=== PATIENT | female | born 2000 | race Hispanic/Latino ===

== ENCOUNTER 2023-01-24 12:37 | Emergency (ER) | payer OTHER, SELFPAY ==
--- OUTSIDE RECORDS SUMMARY | 2023-01-24 12:44 | XMS REPORT | Continuity of Care Document ---
:2000 Author Organization [facility] t Address [address] [place] [address] Care Team Providers Name Role Phone CAROLE WREN Primary Care Physician Unavailable CAROLE WREN Attending Clinician Unavailable Carole Walker Attending Clinician SKY FAROOQ Attending Clinician Unavailable SKY FAROOQ Attending Clinician Unavailable SRIRAM LANDIS Attending Clinician Unavailable BRANDEN ODOM Attending Clinician Unavailable Doctor Unassigned, [place] Attending Clinician Unavailable Lab, Ang - Db Attending Clinician Unavailable Jimmy Pompa DO Attending Clinician Juanita Hernandez Attending Clinician JUANITA WATT Attending Clinician Unavailable BETSEY ROJAS Attending Clinician Unavailable Crystal Betsey PERRY Attending Clinician [phone] Lab, Adc Fam Pob I Attending Clinician Unavailable Renetta Starkey Attending Clinician Ultrasound, Ang-Mfm Attending Clinician Unavailable Jeromy Cordon MD Attending Clinician Katt Livingston Attending Clinician Lab, Ang-Rmchp Attending Clinician Unavailable aJcques Tolliver MD Attending Clinician CAROLE WREN Admitting Clinician Unavailable Payers Payer Name Policy Type Policy Number Effective Date Expiration Date S ource [facility] [id number] 2019 00:00:00 [employer] [id number] 2022 OUT OF NETWORK 00:00:00 Problems Condition Condition Condition Status Onset Resolution Last Treating Co mments Source Name Details Category Date Date Treatment Clinician Date On oral On oral Disease Active Univers contracept contracept 2-02 it y of nivia pills niiva pills 00:00: Sayra tyler for for 00 Medical non-contra non-contra Br anch ception ception indication indication Menorrhagi Menorrhagi Disease Active U usman a with a with 2-02 ity of regular regular 00:00: [place] cycle cycle 00 Medical Branch ERICA (iron ERICA (iron Disease Active Uni vers deficiency deficiency 1-24 it y of anemia) anemia) 00:00: [place] 00 Medical Branch Chronic Chronic Disease Active Univers anemia anemia 1-22 ity of 00:00: [place] [facility] Hematochez Hematochez Disease Active 2021-05 U usman ia ia 1-18 ity of 00:00: [place] 00 Medical Branch Internal Internal Disease Active 2021-05 Unive rs hemorrhoid hemorrhoid 1-18 it y of , bleeding , bleeding 00:00: [place] 00 [place] Decreased Decreased Disease Active 2019-05 Uni vers platelet platelet 2-28 ity of count count 00:00: [place] 00 Medical Branch Labor and Labor and Disease Active 2019-05 Uni vers delivery delivery 2-27 ity of indication indication 00:00[place] for care for care 00 Medica l or or Branch interventi interventi on on History of History of Disease Active 2019-05 U nivbriana 2019 novel 2019 novel 2-27 it y of coronaviru coronaviru 00:[place] disease 00 [facility] (COVID-19) (COVID-19) Br anch Disease Active 2019-05 Univers (spontaneo (spontaneo 2-27 it y of us vaginal us vaginal 00:00[place] delivery[place] delivery[place] 00 [facility] Branch Single Single Disease Active 2019-05 Univers live live 2-27 it y of 00:00: [place] 00 [facility] Second Second Disease Active 2019-05 Univers degree degree 2-27 ity of perineal perineal 00:00: [place] laceration laceration 00 Me dical during during Branch delivery delivery Susceptibl Susceptibl Disease Active Overview : Univers e to e to 6-10 Formattin ity of varicella varicella 00:00: [place] of [place] (non-immun (non-immun 00 note Me dical e), e), might be Branch currently currently different from the original. Address pp Supervisio Supervisio Disease Active U nivers n of n of 10-19 ity of high-risk high-risk 00:00: [place] 00 [facility] Allergies, Adverse Reactions, Alerts Allergy Allergy Status Severity Reaction(s) Onset Inactive Treating Comm ents Source Name Type Date Date Clinician NO KNOWN Drug Active Univers ALLERGIE Class ity of S [facility] Social History Social Habit Start Date Stop Date Quantity Comments Source ASSERTION 2019-08-22 University 00:00:00 [facility] History [facility] o f Alcohol Std [place] Medical Drinks Branch History [facility] o f Alcohol Binge [place] [facility] al [facility] Alcohol intake 2022-11-01 2022-11-01 Lifetime University of 00:00:00 00:00:00 non-drinker [facility] (finding) Branch Exposure to 2022-06-04 2022-06-14 Not sure [facility] SARS-CoV-2 00:00:00 11:10:00 [facility] (event) Branch Tobacco Comment 2022-03-28 2022-03-28 no smoke exposure Un iversity of 00:00:00 00:00:00 [facility] Tobacco use and 2022-03-28 2022-03-28 Smokeless tobacco Un iversity of exposure 00:00:00 00:00:00 non-user [facility] History SDOH 2019-10-20 2019-10-20 1 University o f Alcohol Frequency 00:00:00 00:00:00 [facility] [place] Sex Assigned At [birth year] Universit y of 00:00:00 00:00:00 [facility] Smoking Status Start Date Stop Date Source Never smoked tobacco [facility] Medications Ordered Filled Start Stop Current Ordering Indication Dosage Frequency Signature Comments Components Source Medication Medication Date Date Medication? Clinician (SIG) Name Name meloxicam Yes [id number] 7.5mg Take 1 U nivers 7.5 mg 6-22 tablet by ity of tablet 00:00: mouth once [place] 00 daily as Medical needed Branch (coccyx pain). meloxicam Yes [id number] 7.5mg Take 1 U nivers 7.5 mg 6-22 tablet by ity of tablet 00:00: mouth once [place] 00 daily as Medical needed Branch (coccyx pain). norgestimat Yes [id number] 1{tbl} Take 1 Univers e-ethinyl 2-02 tablet by ity o f estradioL 00:00[place] ([place]TH[place] 00 the Medical TRI-CYCLEN, morning. Bran ch 28,) 0.18/0.215/ 0.25 mg-35 mcg (28) tablet norgestimat Yes [id number] 1{tbl} Take 1 Univers e-ethinyl 2-02 tablet by ity o f estradioL 00:[place] the Medical TRI-CYCLEN, morning. Bran ch 28,) 0.18/0.215/ 0.25 mg-35 mcg (28) tablet norgestimat 2022- No [id number] 1{tbl} Take 1 Univers e-ethinyl 2-02 06-22 tablet by ity of estradioL 00:00: 00:00 mouth in [place] (ORTHO 00 :00 the Medical TRI-CYCLEN, morning. Bran ch 28,) 0.18/0.215/ 0.25 mg-35 mcg (28) tablet norgestimat 202- No [id number] 1{tbl} Take 1 Univers e-ethinyl 2-02 06-22 tablet by ity of estradioL 00:00: 00:00 mouth in [place] (ORTHO 00 :00 the Medical TRI-CYCLEN, morning. Bran ch 28,) 0.18/0.215/ 0.25 mg-35 mcg (28) tablet ferrous Yes [id number] 325mg Take 1 Uni vers sulfate 325 1-24 tablet by ity of mg (65 mg 00:00: [place] iron[place] 00 the Medical tablet morning Branch and 1 tablet in the evening. ferrous Yes [id number] 325mg Take 1 Uni vers sulfate 325 1-24 tablet by ity of mg (65 mg 00:00: [place] iron[place] 00 the Medical tablet morning Branch and 1 tablet in the evening. ferrous 2022-0 Yes [id number] 325mg Take 1 Uni vers sulfate 325 1-24 tablet by ity of mg (65 mg 00:00: [place] iron[place] 00 the Medical tablet morning Branch and 1 tablet in the evening. ferrous 2022-0 Yes [id number] 325mg Take 1 Uni vers sulfate 325 1-24 tablet by ity of mg (65 mg 00:00: [place] iron[place] 00 the Medical tablet morning Branch and 1 tablet in the evening. ferrous 0 Yes [id number] 325mg Take 1 Uni vers sulfate 325 1-24 tablet by ity of mg (65 mg 00:00: [place] iron[place] 00 the Medical tablet morning Branch and 1 tablet in the evening. ferrous 2022- No [id number] 325mg Take 1 Un shiraz sulfate 325 1-24 06-22 tablet by it y of mg (65 mg 00:00: 00:00 mouth in [place] iron) 00 :00 the Medical tablet morning Branch and 1 tablet in the evening. ferrous 0 2022- No [id number] 325mg Take 1 Un shiraz sulfate 325 1-24 06-22 tablet by it y of mg (65 mg 00:00: 00:00 mouth in [place] iron) 00 :00 the Medical tablet morning Branch and 1 tablet in the evening. No known No No known [facility] medications 05-31 medication it y of 07:45: s [place] 09 Medical Branch docusate 2022- No Take by Unive rs sodium 05-31 mouth. ity of (COLACE 07:35: 00:00 [place] ORAL) 42 :00 Medical Branch docusate 2022- No Take by Unive rs sodium 05-31 mouth. ity of (COLACE 07:35: 00:00 [place] ORAL) 42 :00 Medical Branch Omeprazole 0 Yes [id number] 20mg Take 1 Univers 20 mg -19 tablet by ity of tablet 00:00: mouth in [place] 00 the Medical morning. Branch Omeprazole 2022-0 Yes [id number] 20mg Take 1 Univers 20 mg 1-19 tablet by ity of tablet 00:00: mouth in [place] 00 the Medical morning. Branch Omeprazole 3-0 Yes [id number] 20mg Take 1 Univers 20 mg 1-19 tablet by ity of tablet 00:00: mouth in [place] 00 the Medical morning. Branch Omeprazole 3-0 Yes [id number] 20mg Take 1 Univers 20 mg 1-19 tablet by ity of tablet 00:00: mouth in [place] 00 the Medical morning. Branch Omeprazole 3-0 Yes [id number] 20mg Take 1 Univers 20 mg 1-19 tablet by ity of tablet 00:00: mouth in [place] 00 the Medical morning. Branch Omeprazole 3-0 Yes [id number] 20mg Take 1 Univers 20 mg 1-19 tablet by ity of tablet 00:00: mouth in [place] 00 the Medical morning. Branch Omeprazole 3-0 Yes [id number] 20mg Take 1 Univers 20 mg 1-19 tablet by ity of tablet 00:00: mouth in [place] 00 the Medical morning. Branch omeprazole 3-0 Yes TAKE 1 Unive rs 20 mg 1-19 CAPSULE BY ity of capsule 00:00: MOUTH IN [place] 00 THE Medical MORNING Branch Omeprazole 3-0 Yes [id number] 20mg Take 1 Univers 20 mg 1-19 tablet by ity of tablet 00:00: mouth in [place] 00 the Medical morning. Branch omeprazole 3-0 Yes TAKE 1 Unive rs 20 mg 1-19 CAPSULE BY ity of capsule 00:00: MOUTH IN [place] 00 THE Medical MORNING Branch Omeprazole 3-0 3- No [id number] 20mg Take 1 Univers 20 mg 1-19 06-22 tablet by ity of tablet 00:00: 00:00 mouth in [place] 00 :00 the Medical morning. Branch omeprazole 3-0 3- No TAKE 1 Univ ers 20 mg 1-19 06-22 CAPSULE BY ity of capsule 00:00: 00:00 MOUTH IN [place] 00 :00 THE Medical MORNING Branch Omeprazole 2023-0 3- No [id number] 20mg Take 1 Univers 20 mg 1-19 06-22 tablet by ity of tablet 00:00: 00:00 mouth in [place] 00 :00 the Medical morning. Branch omeprazole 3-0 2022- No TAKE 1 Univ ers 20 mg 1-19 06-22 CAPSULE BY ity of capsule 00:00: 00:00 MOUTH IN [place] 00 :00 THE Medical MORNING Branch acyclovir 2021-05 Yes TAKE 1 Univer s 200 mg 2-09 CAPSULE BY ity of capsule 00:00: [place]TH [place] 00 TIMES Medical DAILY FOR Branch COLD SORES acyclovir 2021-05 Yes TAKE 1 Univer s 200 mg 2-09 CAPSULE BY ity of capsule 00:00: [place] 00 TIMES Medical DAILY FOR Branch COLD SORES acyclovir 2021-05- No TAKE 1 Unive rs 200 mg 06-21 CAPSULE BY ity of capsule 00:00: 00:00 MOUTH FIVE [place] 00 :00 TIMES Medical DAILY FOR Branch COLD SORES acyclovir 2021-05- No TAKE 1 Unive rs 200 mg 06-21 CAPSULE BY ity of capsule 00:00: 00:00 MOUTH FIVE [place] 00 :00 TIMES Medical DAILY FOR Branch COLD SORES docusate 2021-05 Yes Take by Univer s sodium 1-16 mouth. ity of (COLACE 11:05: [place] ORAL) 31 Medical Branch docusate 2021-05 Yes Take by Univer s sodium 1-16 mouth. ity of (COLACE 11:05: [place] ORAL) 31 Medical Branch docusate 2021-05 Yes Take by Univer s sodium 1-16 mouth. ity of (COLACE 11:05: [place] ORAL) 31 Medical Branch docusate 2021-05 Yes Take by Univer s sodium 1-16 mouth. ity of (COLACE 11:05: [place] ORAL) 31 Medical Branch docusate Yes Take by Univer s sodium 2-23 mouth. ity of (COLACE 20:10: [place] ORAL) 45 Medical Branch docusate 0 Yes Take by Univer s sodium 2-23 mouth. ity of (COLACE 20:10: [place] ORAL) 45 Medical Branch docusate 0 Yes Take by Univer s sodium 2-23 mouth. ity of (COLACE 20:10: [place] ORAL) 45 Medical Branch docusate 2019-05 Yes [id number] 240mg Take 1 U nivers calcium 240 2-29 capsule by it y of mg capsule 00:00: mouth once [place] 00 daily as Medical needed for Branch Constipati on. ibuprofen 2019-05 Yes [id number] 600mg Take 1 Univers 600 mg 2-29 tablet by ity of tablet 00:00: mouth [place] 00 every 6 Medical (six) Branch hours as needed (Pain). Take with food or milk. Iron Fum & 2019-05 Yes [id number] 1{capsu Take 1 Univers P-FA-Vit B 2-29 le} capsule by ity of & C No.9 00:00: mouth [place] (INTEGRA 00 daily. Medical PLUS) 125 Branch mg iron- 1 mg Cap docusate 2019-05- No [id number] 240mg Take 1 Univers calcium 240 2-29 02-23 capsule by i ty of mg capsule 00:00: 00:00 mouth once [place] 00 :00 daily as Medical needed for Branch Constipati on. ibuprofen 2019-05- No [id number] 600mg Take 1 Univers 600 mg 2-29 02-23 tablet by ity of tablet 00:00: 00:00 mouth [place] 00 :00 every 6 Medical (six) Branch hours as needed (Pain). Take with food or milk. Iron Fum & 2019-05- No [id number] 1{capsu Take 1 Univers P-FA-Vit B 2-29 02-23 le} capsule by it y of & C No.9 00:00: 00:00 mouth [place] (INTEGRA 00 :00 daily. Medical PLUS) 125 Branch mg iron- 1 mg Cap docusate 2019-05- No [id number] 240mg Take 1 Univers calcium 240 2- 02-23 capsule by i ty of mg capsule 00:00: 00:00 mouth once [place] 00 :00 daily as Medical needed for Branch Constipati on. ibuprofen 2019-05- No [id number] 600mg Take 1 Univers 600 mg 2-29 02-23 tablet by ity of tablet 00:00: 00:00 mouth [place] 00 :00 every 6 Medical (six) Branch hours as needed (Pain). Take with food or milk. Iron Fum & 2019-05- No [id number] 1{capsu Take 1 Univers P-FA-Vit B 2-29 02-23 le} capsule by it y of & C No.9 00:00: 00:00 mouth [place] (INTEGRA 00 :00 daily. Medical PLUS) 125 Branch mg iron- 1 mg Cap No known No Univers medications ity of [place] [facility] No known No Univers medications ity of [place] [facility] No known No Univers medications ity of [place] [facility] No known No Univers medications ity of [place] [facility] No known No Univers medications ity of [place] [facility] No known No Univers medications ity of [place] [facility] No known No Univers medications ity of [place] [facility] No known No Univers medications ity of [place] [facility] No known No Univers medications ity of [place] [facility] No known No Univers medications ity of [place] [facility] No known No Univers medications ity of [place] [facility] No known No Univers medications ity of [place] [facility] No known No Univers medications ity of [place] [facility] No known No Univers medications ity of [place] [facility] No known No Univers medications ity of [place] [facility] No known No Univers medications ity of [place] [facility] No known No Univers medications ity of [place] [facility] No known No Univers medications ity of [place] [facility] No known No Univers medications ity of [place] [facility] Immunizations Ordered Filled Immunization Date Status Comments [facility] Immunization Name Name Varicella 2020-05-10 Completed University of (varivax)(chicken 00:00:00 [place] M edical pox) Branch Varicella 2020-05-10 Completed University of (varivax)(chicken 00:00:00 [place] M edical pox) Branch Varicella 2020-05-10 Completed University of (varivax)(chicken 00:00:00 [place] M edical pox) Branch Varicella 2020-05-10 Completed University of (varivax)(chicken 00:00:00 [place] M edical pox) Branch Varicella 2020-05-10 Completed University of (varivax)(chicken 00:00:00 [place] M edical pox) Branch Varicella 2020-05-10 Completed University of (varivax)(chicken 00:00:00 [place] M edical pox) Branch Varicella 2020-05-10 Completed University of (varivax)(chicken 00:00:00 [place] M edical pox) Branch Varicella 2020-05-10 Completed University of (varivax)(chicken 00:00:00 [place] M edical pox) Branch Varicella 2020-05-10 Completed University of (varivax)(chicken 00:00:00 [place] M edical pox) Branch Varicella 2020-05-10 Completed University of (varivax)(chicken 00:00:00 [place] M edical pox) Branch Varicella 2020-05-10 Completed University of (varivax)(chicken 00:00:00 [place] M edical pox) Branch Varicella 2020-05-10 Completed University of (varivax)(chicken 00:00:00 [place] M edical pox) Branch Varicella 2020-05-10 Completed University of (varivax)(chicken 00:00:00 [place] M edical pox) Branch Varicella 2020-05-10 Completed University of (varivax)(chicken 00:00:00 [place] M edical pox) Branch Varicella 2020-05-10 Completed University of (varivax)(chicken 00:00:00 [place] M edical pox) Branch Varicella 2020-05-10 Completed University of (varivax)(chicken 00:00:00 [place] M edical pox) Branch Varicella 2020-05-10 Completed University of (varivax)(chicken 00:00:00 [place] M edical pox) Branch Varicella 2020-05-10 Completed University of (varivax)(chicken 00:00:00 [place] M edical pox) Branch Varicella 2020-05-10 Completed University of (varivax)(chicken 00:00:00 [place] M edical pox) Branch TDAP 2020-02-24 Completed University of 00:00:00 [facility] TDAP 2020-02-24 Completed University of 00:00:00 [facility] TDAP 2020-02-24 Completed University of 00:00:00 [facility] TDAP 2020-02-24 Completed University of 00:00:00 [facility] TDAP 2020-02-24 Completed University of 00:00:00 [facility] TDAP 2020-02-24 Completed University of 00:00:00 [facility] TDAP 2020-02-24 Completed University of 00:00:00 [facility] TDAP 2020-02-24 Completed University of 00:00:00 [facility] TDAP 2020-02-24 Completed University of 00:00:00 [facility] TDAP 2020-02-24 Completed University of 00:00:00 [facility] TDAP 2020-02-24 Completed University of 00:00:00 [facility] TDAP 2020-02-24 Completed University of 00:00:00 [facility] TDAP 2020-02-24 Completed University of 00:00:00 [facility] TDAP 2020-02-24 Completed University of 00:00:00 [place] [facility] TDAP 2020-02-24 Completed University of 00:00:00 [place] [facility] TDAP 2020-02-24 Completed University of 00:00:00 [place] [facility] TDAP 2020-02-24 Completed University of 00:00:00 [place] [facility] TDAP 2020-02-24 Completed University of 00:00:00 [place] [facility] TDAP 2020-02-24 Completed University of 00:00:00 [place] [facility] TDAP 2020-02-24 Completed University of 00:00:00 [place] [facility] TDAP 2020-02-24 Completed University of 00:00:00 [place] [facility] TDAP 2020-02-24 Completed University of 00:00:00 [place] [facility] TDAP 2020-02-24 Completed University of 00:00:00 [place] [facility] TDAP 2020-02-24 Completed University of 00:00:00 [place] [facility] TDAP 2020-02-24 Completed University of 00:00:00 [place] [facility] TDAP 2020-02-24 Completed University of 00:00:00 [place] [facility] TDAP 2020-02-24 Completed University of 00:00:00 [place] [facility] TDAP 2020-02-24 Completed University of 00:00:00 [place] [facility] HPV 2012-09-09 Completed University of 00:00:00 [place] [facility] HPV 2012-09-09 Completed University of 00:00:00 [place] [facility] HPV 2012-09-09 Completed University of 00:00:00 [place] [facility] HPV 2012-09-09 Completed University of 00:00:00 [place] [facility] HPV 2012-09-09 Completed University of 00:00:00 [place] [facility] HPV 2012-09-09 Completed University of 00:00:00 [place] [facility] HPV 2012-09-09 Completed University of 00:00:00 [place] [facility] HPV 2012-09-09 Completed University of 00:00:00 [place] [facility] HPV 2012-09-09 Completed University of 00:00:00 [place] [facility] HPV 2012-09-09 Completed University of 00:00:00 [place] [facility] HPV 2012-09-09 Completed University of 00:00:00 [place] [facility] HPV 2012-09-09 Completed University of 00:00:00 [place] [facility] HPV 2012-09-09 Completed University of 00:00:00 [place] [facility] HPV 2012-09-09 Completed University of 00:00:00 [place] [facility] HPV 2012-09-09 Completed University of 00:00:00 [place] [facility] HPV 2012-09-09 Completed University of 00:00:00 [place] [facility] HPV 2012-09-09 Completed University of 00:00:00 [place] [facility] HPV 2012-09-09 Completed University of 00:00:00 [place] [facility] HPV 2012-09-09 Completed University of 00:00:00 [place] [facility] HPV 2012-09-09 Completed University of 00:00:00 [place] [facility] HPV 2012-09-09 Completed University of 00:00:00 [place] [facility] HPV 2012-09-09 Completed University of 00:00:00 [place] [facility] HPV 2012-09-09 Completed University of 00:00:00 [place] [facility] HPV 2012-09-09 Completed University of 00:00:00 [place] [facility] HPV 2012-09-09 Completed University of 00:00:00 [place] [facility] HPV 2012-09-09 Completed University of 00:00:00 [place] [facility] HPV 2012-09-09 Completed University of 00:00:00 [place] [facility] HPV 2012-09-09 Completed University of 00:00:00 [place] [facility] HPV 2012-09-09 Completed University of 00:00:00 [place] [facility] HPV 2012-09-09 Completed University of 00:00:00 [place] [facility] HPV 2012-09-09 Completed University of 00:00:00 [place] [facility] HPV 2012-09-09 Completed University of 00:00:00 [place] [facility] HPV 2012-09-09 Completed University of 00:00:00 [place] [facility] HPV 2012-09-09 Completed University of 00:00:00 [place] [facility] HPV 2012-09-09 Completed University of 00:00:00 [place] [facility] HPV 2012-09-09 Completed University of 00:00:00 [place] [facility] HPV 2012-09-09 Completed University of 00:00:00 [place] [facility] HPV 2012-09-09 Completed University of 00:00:00 [place] [facility] HPV 2011-08-22 Completed University of 00:00:00 [facility] Branch Influenza Virus 2011-08-22 Completed Universit y of Vaccine 00:00:00 [place] [facility] HPV 2011-08-22 Completed University of 00:00:00 [facility] Branch Influenza Virus 2011-08-22 Completed Universit y of Vaccine 00:00:00 [place] [facility] HPV 2011-08-22 Completed University of 00:00:00 [place] [facility] Influenza Virus 2011-08-22 Completed Universit y of Vaccine 00:00:00 [facility] HPV 2011-08-22 Completed University of 00:00:00 [facility] Influenza Virus 2011-08-22 Completed Universit y of Vaccine 00:00:00 [facility] HPV 2011-08-22 Completed University of 00:00:00 [facility] Influenza Virus 2011-08-22 Completed Universit y of Vaccine 00:00:00 [facility] HPV 2011-08-22 Completed University of 00:00:00 [facility] Influenza Virus 2011-08-22 Completed Universit y of Vaccine 00:00:00 [facility] HPV 2011-08-22 Completed University of 00:00:00 [facility] Influenza Virus 2011-08-22 Completed Universit y of Vaccine 00:00:00 [facility] HPV 2011-08-22 Completed University of 00:00:00 [facility] Influenza Virus 2011-08-22 Completed Universit y of Vaccine 00:00:00 [facility] HPV 2011-08-22 Completed University of 00:00:00 [facility] Influenza Virus 2011-08-22 Completed Universit y of Vaccine 00:00:00 [facility] HPV 2011-08-22 Completed University of 00:00:00 [facility] Influenza Virus 2011-08-22 Completed Universit y of Vaccine 00:00:00 [facility] HPV 2011-08-22 Completed University of 00:00:00 [facility] Influenza Virus 2011-08-22 Completed Universit y of Vaccine 00:00:00 [facility] HPV 2011-08-22 Completed University of 00:00:00 [facility] Influenza Virus 2011-08-22 Completed Universit y of Vaccine 00:00:00 [facility] HPV 2011-08-22 Completed University of 00:00:00 [facility] Influenza Virus 2011-08-22 Completed Universit y of Vaccine 00:00:00 [facility] HPV 2011-08-22 Completed University of 00:00:00 [facility] Influenza Virus 2011-08-22 Completed Universit y of Vaccine 00:00:00 [facility] HPV 2011-08-22 Completed University of 00:00:00 [facility] Influenza Virus 2011-08-22 Completed Universit y of Vaccine 00:00:00 [facility] HPV 2011-08-22 Completed [facility] 00:00:00 [facility] Influenza Virus 2011-08-22 Completed [facility] Vaccine 00:00:00 [facility] HPV 2011-08-22 Completed [facility] 00:00:00 [facility] Influenza Virus 2011-08-22 Completed [facility] Vaccine 00:00:00 [facility] HPV 2011-08-22 Completed [facility] 00:00:00 [facility] Influenza Virus 2011-08-22 Completed [facility] Vaccine 00:00:00 [facility] HPV 2011-08-22 Completed [facility] 00:00:00 [facility] Influenza Virus 2011-08-22 Completed [facility] Vaccine 00:00:00 [facility] HPV 2011-08-22 Completed [facility] 00:00:00 [facility] Influenza Virus 2011-08-22 Completed [facility] Vaccine 00:00:00 [facility] HPV 2011-08-22 Completed [facility] 00:00:00 [facility] HPV 2011-08-22 Completed [facility] 00:00:00 [facility] Influenza Virus 2011-08-22 Completed [facility] Vaccine 00:00:00 [facility] Influenza Virus 2011-08-22 Completed [facility] Vaccine 00:00:00 [facility] HPV 2011-08-22 Completed [facility] 00:00:00 [facility] Influenza Virus 2011-08-22 Completed [facility] Vaccine 00:00:00 [facility] HPV 2011-08-22 Completed [facility] 00:00:00 [facility] Influenza Virus 2011-08-22 Completed [facility] Vaccine 00:00:00 [facility] HPV 2011-08-22 Completed [facility] 00:00:00 [facility] Influenza Virus 2011-08-22 Completed [facility] Vaccine 00:00:00 [facility] HPV 2011-08-22 Completed [facility] 00:00:00 [facility] Influenza Virus 2011-08-22 Completed [facility] Vaccine 00:00:00 [facility] HPV 2011-08-22 Completed [facility] 00:00:00 [facility] Influenza Virus 2011-08-22 Completed [facility] Vaccine 00:00:00 [facility] HPV 2011-08-22 Completed [facility] 00:00:00 [facility] Influenza Virus 2011-08-22 Completed [facility] Vaccine 00:00:00 [facility] HPV 2011-08-22 Completed [facility] 00:00:00 [facility] Influenza Virus 2011-08-22 Completed [facility] Vaccine 00:00:00 [facility] HPV 2011-08-22 Completed [facility] 00:00:00 [facility] Influenza Virus 2011-08-22 Completed [facility] Vaccine 00:00:00 [facility] HPV 2011-08-22 Completed [facility] 00:00:00 [facility] Influenza Virus 2011-08-22 Completed [facility] Vaccine 00:00:00 [facility] HPV 2011-08-22 Completed [facility] 00:00:00 [facility] Influenza Virus 2011-08-22 Completed [facility] Vaccine 00:00:00 [facility] HPV 2011-08-22 Completed [facility] 00:00:00 [facility] Influenza Virus 2011-08-22 Completed [facility] Vaccine 00:00:00 [facility] HPV 2011-08-22 Completed [facility] 00:00:00 [facility] Influenza Virus 2011-08-22 Completed [facility] Vaccine 00:00:00 [facility] HPV 2011-08-22 Completed [facility] 00:00:00 [facility] Influenza Virus 2011-08-22 Completed [facility] Vaccine 00:00:00 [facility] HPV 2011-08-22 Completed [facility] 00:00:00 [facility] Influenza Virus 2011-08-22 Completed [facility] Vaccine 00:00:00 [facility] HPV 2011-08-22 Completed [facility] 00:00:00 [facility] Influenza Virus 2011-08-22 Completed [facility] Vaccine 00:00:00 [facility] HPV 2011-08-22 Completed [facility] 00:00:00 [facility] Influenza Virus 2011-08-22 Completed [facility] Vaccine 00:00:00 [facility] HEPATITIS A 2007-05-28 Completed [facility] 00:00:00 [facility] Influenza Virus 2007-05-28 Completed [facility] Vaccine 00:00:00 [facility] HEPATITIS A 2007-05-28 Completed [facility] 00:00:00 [facility] Influenza Virus 2007-05-28 Completed [facility] Vaccine 00:00:00 [facility] HEPATITIS A 2007-05-28 Completed [facility] 00:00:00 [facility] Influenza Virus 2007-05-28 Completed [facility] Vaccine 00:00:00 [facility] HEPATITIS A 2007-05-28 Completed [facility] 00:00:00 [facility] HEPATITIS A 2007-05-28 Completed [facility] 00:00:00 [facility] Influenza Virus 2007-05-28 Completed [facility] Vaccine 00:00:00 [facility] Influenza Virus 2007-05-28 Completed [facility] Vaccine 00:00:00 [facility] HEPATITIS A 2007-05-28 Completed [facility] 00:00:00 [facility] Influenza Virus 2007-05-28 Completed [facility] Vaccine 00:00:00 [facility] HEPATITIS A 2007-05-28 Completed [facility] 00:00:00 [facility] Influenza Virus 2007-05-28 Completed [facility] Vaccine 00:00:00 [facility] HEPATITIS A 2007-05-28 Completed [facility] 00:00:00 [facility] Influenza Virus 2007-05-28 Completed [facility] Vaccine 00:00:00 [facility] HEPATITIS A 2007-05-28 Completed [facility] 00:00:00 [facility] Influenza Virus 2007-05-28 Completed [facility] Vaccine 00:00:00 [facility] HEPATITIS A 2007-05-28 Completed [facility] 00:00:00 [facility] Influenza Virus 2007-05-28 Completed [facility] Vaccine 00:00:00 [facility] HEPATITIS A 2007-05-28 Completed [facility] 00:00:00 [facility] Influenza Virus 2007-05-28 Completed [facility] Vaccine 00:00:00 [facility] HEPATITIS A 2007-05-28 Completed [facility] 00:00:00 [facility] Influenza Virus 2007-05-28 Completed [facility] Vaccine 00:00:00 [facility] HEPATITIS A 2007-05-28 Completed [facility] 00:00:00 [facility] HEPATITIS A 2007-05-28 Completed [facility] 00:00:00 [facility] Influenza Virus 2007-05-28 Completed [facility] Vaccine 00:00:00 [facility] Influenza Virus 2007-05-28 Completed [facility] Vaccine 00:00:00 [facility] HEPATITIS A 2007-05-28 Completed [facility] 00:00:00 [facility] Influenza Virus 2007-05-28 Completed [facility] Vaccine 00:00:00 [facility] HEPATITIS A 2007-05-28 Completed [facility] 00:00:00 [facility] Influenza Virus 2007-05-28 Completed [facility] Vaccine 00:00:00 [facility] HEPATITIS A 2007-05-28 Completed [facility] 00:00:00 [facility] Influenza Virus 2007-05-28 Completed [facility] Vaccine 00:00:00 [facility] HEPATITIS A 2007-05-28 Completed [facility] 00:00:00 [facility] Influenza Virus 2007-05-28 Completed [facility] Vaccine 00:00:00 [facility] HEPATITIS A 2007-05-28 Completed [facility] 00:00:00 [facility] Influenza Virus 2007-05-28 Completed [facility] Vaccine 00:00:00 [facility] HEPATITIS A 2007-05-28 Completed [facility] 00:00:00 [facility] HEPATITIS A 2007-05-28 Completed [facility] 00:00:00 [facility] Influenza Virus 2007-05-28 Completed [facility] Vaccine 00:00:00 [facility] HEPATITIS A 2007-05-28 Completed [facility] 00:00:00 [facility] Influenza Virus 2007-05-28 Completed [facility] Vaccine 00:00:00 [facility] Influenza Virus 2007-05-28 Completed [facility] Vaccine 00:00:00 [facility] HEPATITIS A 2007-05-28 Completed [facility] 00:00:00 [facility] Influenza Virus 2007-05-28 Completed [facility] Vaccine 00:00:00 [facility] HEPATITIS A 2007-05-28 Completed [facility] 00:00:00 [facility] Influenza Virus 2007-05-28 Completed [facility] Vaccine 00:00:00 [facility] HEPATITIS A 2007-05-28 Completed [facility] 00:00:00 [facility] Influenza Virus 2007-05-28 Completed [facility] Vaccine 00:00:00 [facility] HEPATITIS A 2007-05-28 Completed [facility] 00:00:00 [facility] Influenza Virus 2007-05-28 Completed [facility] Vaccine 00:00:00 [facility] HEPATITIS A 2007-05-28 Completed [facility] 00:00:00 [facility] Influenza Virus 2007-05-28 Completed [facility] Vaccine 00:00:00 [facility] HEPATITIS A 2007-05-28 Completed [facility] 00:00:00 [facility] Influenza Virus 2007-05-28 Completed [facility] Vaccine 00:00:00 [facility] HEPATITIS A 2007-05-28 Completed [facility] 00:00:00 [facility] Influenza Virus 2007-05-28 Completed [facility] Vaccine 00:00:00 [facility] HEPATITIS A 2007-05-28 Completed [facility] 00:00:00 [facility] Influenza Virus 2007-05-28 Completed [facility] Vaccine 00:00:00 [facility] HEPATITIS A 2007-05-28 Completed [facility] 00:00:00 [facility] Influenza Virus 2007-05-28 Completed [facility] Vaccine 00:00:00 [facility] HEPATITIS A 2007-05-28 Completed [facility] 00:00:00 [facility] Influenza Virus 2007-05-28 Completed [facility] Vaccine 00:00:00 [facility] HEPATITIS A 2007-05-28 Completed [facility] 00:00:00 [facility] HEPATITIS A 2007-05-28 Completed [facility] 00:00:00 [facility] Influenza Virus 2007-05-28 Completed [facility] Vaccine 00:00:00 [facility] Influenza Virus 2007-05-28 Completed [facility] Vaccine 00:00:00 [facility] HEPATITIS A 2007-05-28 Completed [facility] 00:00:00 [facility] Influenza Virus 2007-05-28 Completed [facility] Vaccine 00:00:00 [facility] HEPATITIS A 2007-05-28 Completed [facility] 00:00:00 [facility] Influenza Virus 2007-05-28 Completed [facility] Vaccine 00:00:00 [facility] HEPATITIS A 2007-05-28 Completed [facility] 00:00:00 [facility] Influenza Virus 2007-05-28 Completed [facility] Vaccine 00:00:00 [facility] HEPATITIS A 2007-05-28 Completed [facility] 00:00:00 [facility] Influenza Virus 2007-05-28 Completed [facility] Vaccine 00:00:00 [facility] HEPATITIS A 2006-11-25 Completed [facility] 00:00:00 [facility] DTAP 2006-11-25 Completed [facility] 00:00:00 [facility] MMR 2006-11-25 Completed [facility] 00:00:00 [facility] Polio (IPV/OPV) 2006-11-25 Completed [facility] 00:00:00 [facility] Varicella 2006-11-25 Completed [facility] (varivax)(chicken 00:00:00 [place] [facility] pox) [facility] HEPATITIS A 2006-11-25 Completed [facility] 00:00:00 [facility] DTAP 2006-11-25 Completed [facility] 00:00:00 [facility] MMR 2006-11-25 Completed [facility] 00:00:00 [facility] Polio (IPV/OPV) 2006-11-25 Completed [facility] 00:00:00 [facility] Varicella 2006-11-25 Completed [facility] (varivax)(chicken 00:00:00 [place] [facility] pox) [facility] HEPATITIS A 2006-11-25 Completed [facility] 00:00:00 [facility] DTAP 2006-11-25 Completed [facility] 00:00:00 [facility] HEPATITIS A 2006-11-25 Completed [facility] 00:00:00 [facility] MMR 2006-11-25 Completed [facility] 00:00:00 [facility] Polio (IPV/OPV) 2006-11-25 Completed [facility] 00:00:00 [facility] Varicella 2006-11-25 Completed [facility] (varivax)(chicken 00:00:00 [place] [facility] pox) [facility] HEPATITIS A 2006-11-25 Completed [facility] 00:00:00 [facility] DTAP 2006-11-25 Completed [facility] 00:00:00 [facility] MMR 2006-11-25 Completed [facility] 00:00:00 [facility] Polio (IPV/OPV) 2006-11-25 Completed [facility] 00:00:00 [facility] Varicella 2006-11-25 Completed [facility] (varivax)(chicken 00:00:00 [place] [facility] pox) [facility] HEPATITIS A 2006-11-25 Completed [facility] 00:00:00 [facility] DTAP 2006-11-25 Completed [facility] 00:00:00 [facility] MMR 2006-11-25 Completed [facility] 00:00:00 [facility] Polio (IPV/OPV) 2006-11-25 Completed [facility] 00:00:00 [facility] Varicella 2006-11-25 Completed [facility] (varivax)(chicken 00:00:00 [place] [facility] pox) [facility] DTAP 2006-11-25 Completed [facility] 00:00:00 [facility] HEPATITIS A 2006-11-25 Completed [facility] 00:00:00 [facility] DTAP 2006-11-25 Completed [facility] 00:00:00 [facility] MMR 2006-11-25 Completed [facility] 00:00:00 [facility] Polio (IPV/OPV) 2006-11-25 Completed [facility] 00:00:00 [facility] Varicella 2006-11-25 Completed [facility] (varivax)(chicken 00:00:00 [place] [facility] pox) [facility] HEPATITIS A 2006-11-25 Completed [facility] 00:00:00 [facility] DTAP 2006-11-25 Completed [facility] 00:00:00 [facility] MMR 2006-11-25 Completed [facility] 00:00:00 [facility] MMR 2006-11-25 Completed [facility] 00:00:00 [facility] Polio (IPV/OPV) 2006-11-25 Completed [facility] 00:00:00 [facility] Varicella 2006-11-25 Completed [facility] (varivax)(chicken 00:00:00 [place] [facility] pox) [facility] HEPATITIS A 2006-11-25 Completed [facility] 00:00:00 [facility] DTAP 2006-11-25 Completed [facility] 00:00:00 [facility] MMR 2006-11-25 Completed [facility] 00:00:00 [facility] Polio (IPV/OPV) 2006-11-25 Completed [facility] 00:00:00 [facility] Varicella 2006-11-25 Completed [facility] (varivax)(chicken 00:00:00 [facility] ed[facility] pox) Branch HEPATITIS A 2006-11-25 Completed [facility] 00:00:00 [facility] Polio (IPV/OPV) 2006-11-25 Completed [facility] 00:00:00 [facility] DTAP 2006-11-25 Completed [facility] 00:00:00 [facility] MMR 2006-11-25 Completed [facility] 00:00:00 [facility] Polio (IPV/OPV) 2006-11-25 Completed [facility] 00:00:00 [facility] Varicella 2006-11-25 Completed [facility] (varivax)(chicken 00:00:00 [place] [facility] pox) [facility] Varicella 2006-11-25 Completed [facility] (varivax)(chicken 00:00:00 [place] [facility] pox) [facility] HEPATITIS A 2006-11-25 Completed [facility] 00:00:00 [facility] DTAP 2006-11-25 Completed [facility] 00:00:00 [facility] MMR 2006-11-25 Completed [facility] 00:00:00 [facility] Polio (IPV/OPV) 2006-11-25 Completed [facility] 00:00:00 [facility] Varicella 2006-11-25 Completed [facility] (varivax)(chicken 00:00:00 [place] [facility] pox) [facility] HEPATITIS A 2006-11-25 Completed [facility] 00:00:00 [facility] DTAP 2006-11-25 Completed [facility] 00:00:00 [facility] MMR 2006-11-25 Completed [facility] 00:00:00 [facility] Polio (IPV/OPV) 2006-11-25 Completed [facility] 00:00:00 [facility] Varicella 2006-11-25 Completed [facility] (varivax)(chicken 00:00:00 [place] [facility] pox) [facility] HEPATITIS A 2006-11-25 Completed [facility] 00:00:00 [facility] HEPATITIS A 2006-11-25 Completed [facility] 00:00:00 [facility] DTAP 2006-11-25 Completed [facility] 00:00:00 [facility] MMR 2006-11-25 Completed [facility] 00:00:00 [facility] Polio (IPV/OPV) 2006-11-25 Completed [facility] 00:00:00 [facility] Varicella 2006-11-25 Completed [facility] (varivax)(chicken 00:00:00 [facility] edical pox) Branch HEPATITIS A 2006-11-25 Completed [facility] 00:00:00 [facility] DTAP 2006-11-25 Completed [facility] 00:00:00 [facility] MMR 2006-11-25 Completed [facility] 00:00:00 [facility] Polio (IPV/OPV) 2006-11-25 Completed [facility] 00:00:00 [facility] Varicella 2006-11-25 Completed [facility] (varivax)(chicken 00:00:00 [place] [facility] pox) [facility] HEPATITIS A 2006-11-25 Completed [facility] 00:00:00 [facility] DTAP 2006-11-25 Completed [facility] 00:00:00 [facility] DTAP 2006-11-25 Completed [facility] 00:00:00 [facility] MMR 2006-11-25 Completed [facility] 00:00:00 [facility] Polio (IPV/OPV) 2006-11-25 Completed [facility] 00:00:00 [facility] Varicella 2006-11-25 Completed [facility] (varivax)(chicken 00:00:00 [place] [facility] pox) [facility] HEPATITIS A 2006-11-25 Completed [facility] 00:00:00 [facility] DTAP 2006-11-25 Completed [facility] 00:00:00 [facility] MMR 2006-11-25 Completed [facility] 00:00:00 [facility] MMR 2006-11-25 Completed [facility] 00:00:00 [facility] Polio (IPV/OPV) 2006-11-25 Completed [facility] 00:00:00 [facility] Varicella 2006-11-25 Completed [facility] (varivax)(chicken 00:00:00 [place] [facility] pox[facility] Polio (IPV/OPV) 2006-11-25 Completed [facility] 00:00:00 [facility] Varicella 2006-11-25 Completed [facility] (varivax)(chicken 00:00:00 [place] [facility] pox) Branch HEPATITIS A 2006-11-25 Completed [facility] 00:00:00 [facility] DTAP 2006-11-25 Completed [facility] 00:00:00 [facility] MMR 2006-11-25 Completed [facility] 00:00:00 [facility] Polio (IPV/OPV) 2006-11-25 Completed [facility] 00:00:00 [facility] Varicella 2006-11-25 Completed [facility] (varivax)(chicken 00:00:00 [place] [facility] pox) Branch HEPATITIS A 2006-11-25 Completed [facility] 00:00:00 [facility] DTAP 2006-11-25 Completed [facility] 00:00:00 [facility] MMR 2006-11-25 Completed [facility] 00:00:00 [facility] Polio (IPV/OPV) 2006-11-25 Completed [facility] 00:00:00 [facility] Varicella 2006-11-25 Completed [facility] (varivax)(chicken 00:00:00 [place] [facility] pox) Branch HEPATITIS A 2006-11-25 Completed [facility] 00:00:00 [facility] HEPATITIS A 2006-11-25 Completed [facility] 00:00:00 [facility] DTAP 2006-11-25 Completed [facility] 00:00:00 [facility] MMR 2006-11-25 Completed [facility] 00:00:00 [facility] Polio (IPV/OPV) 2006-11-25 Completed [facility] 00:00:00 [facility] Varicella 2006-11-25 Completed [facility] (varivax)(chicken 00:00:00 [place] [facility] pox) [facility] HEPATITIS A 2006-11-25 Completed [facility] 00:00:00 [facility] DTAP 2006-11-25 Completed [facility] 00:00:00 [facility] MMR 2006-11-25 Completed [facility] 00:00:00 [facility] Polio (IPV/OPV) 2006-11-25 Completed [facility] 00:00:00 [facility] Varicella 2006-11-25 Completed [facility] (varivax)(chicken 00:00:00 [place] [facility] pox) [facility] HEPATITIS A 2006-11-25 Completed [facility] 00:00:00 [facility] DTAP 2006-11-25 Completed [facility] 00:00:00 [facility] MMR 2006-11-25 Completed [facility] 00:00:00 [facility] Polio (IPV/OPV) 2006-11-25 Completed [facility] 00:00:00 [facility] Varicella 2006-11-25 Completed [facility] (varivax)(chicken 00:00:00 [place] [facility] pox) [facility] DTAP 2006-11-25 Completed [facility] 00:00:00 [facility] HEPATITIS A 2006-11-25 Completed [facility] 00:00:00 [facility] DTAP 2006-11-25 Completed [facility] 00:00:00 [facility] MMR 2006-11-25 Completed [facility] 00:00:00 [facility] Polio (IPV/OPV) 2006-11-25 Completed [facility] 00:00:00 [facility] Varicella 2006-11-25 Completed [facility] (varivax)(chicken 00:00:00 [place] [facility] pox) [facility] HEPATITIS A 2006-11-25 Completed [facility] 00:00:00 [facility] DTAP 2006-11-25 Completed [facility] 00:00:00 [facility] MMR 2006-11-25 Completed [facility] 00:00:00 [facility] MMR 2006-11-25 Completed [facility] 00:00:00 [facility] Polio (IPV/OPV) 2006-11-25 Completed [facility] 00:00:00 [facility] Varicella 2006-11-25 Completed [facility] (varivax)(chicken 00:00:00 [place] [facility] pox) Branch HEPATITIS A 2006-11-25 Completed [facility] 00:00:00 [facility] DTAP 2006-11-25 Completed [facility] 00:00:00 [facility] MMR 2006-11-25 Completed [facility] 00:00:00 [facility] Polio (IPV/OPV) 2006-11-25 Completed [facility] 00:00:00 [facility] Varicella 2006-11-25 Completed [facility] (varivax)(chicken 00:00:00 [place] [facility] pox) [facility] Polio (IPV/OPV) 2006-11-25 Completed [facility] 00:00:00 [facility] HEPATITIS A 2006-11-25 Completed [facility] 00:00:00 [facility] DTAP 2006-11-25 Completed [facility] 00:00:00 [facility] MMR 2006-11-25 Completed [facility] 00:00:00 [facility] Varicella 2006-11-25 Completed [facility] (varivax)(chicken 00:00:00 [place] [facility] pox) [facility] Polio (IPV/OPV) 2006-11-25 Completed [facility] 00:00:00 [facility] Varicella 2006-11-25 Completed [facility] (varivax)(chicken 00:00:00 [place] [facility] pox) Branch HEPATITIS A 2006-11-25 Completed [facility] 00:00:00 [facility] DTAP 2006-11-25 Completed [facility] 00:00:00 [facility] MMR 2006-11-25 Completed [facility] 00:00:00 [facility] Polio (IPV/OPV) 2006-11-25 Completed [facility] 00:00:00 [facility] Varicella 2006-11-25 Completed [facility] (varivax)(chicken 00:00:00 [place] [facility] pox) [facility] HEPATITIS A 2006-11-25 Completed [facility] 00:00:00 [facility] DTAP 2006-11-25 Completed [facility] 00:00:00 [facility] MMR 2006-11-25 Completed [facility] 00:00:00 [facility] Polio (IPV/OPV) 2006-11-25 Completed [facility] 00:00:00 [facility] Varicella 2006-11-25 Completed [facility] (varivax)(chicken 00:00:00 [place] [facility] pox) Branch HEPATITIS A 2006-11-25 Completed [facility] 00:00:00 [facility] DTAP 2006-11-25 Completed [facility] 00:00:00 [facility] MMR 2006-11-25 Completed [facility] 00:00:00 [facility] Polio (IPV/OPV) 2006-11-25 Completed [facility] 00:00:00 [facility] Varicella 2006-11-25 Completed [facility] (varivax)(chicken 00:00:00 [place] [facility] pox) Branch HEPATITIS A 2006-11-25 Completed [facility] 00:00:00 [facility] DTAP 2006-11-25 Completed [facility] 00:00:00 [facility] MMR 2006-11-25 Completed [facility] 00:00:00 [facility] Polio (IPV/OPV) 2006-11-25 Completed [facility] 00:00:00 [facility] Varicella 2006-11-25 Completed [facility] (varivax)(chicken 00:00:00 [place] [facility] pox) Branch HEPATITIS A 2006-11-25 Completed [facility] 00:00:00 [facility] DTAP 2006-11-25 Completed [facility] 00:00:00 [facility] MMR 2006-11-25 Completed [facility] 00:00:00 [facility] HEPATITIS A 2006-11-25 Completed [facility] 00[facility]00:00 [facility] Polio (IPV/OPV) 2006-11-25 Completed [facility] 00:00:00 [facility] Varicella 2006-11-25 Completed [facility] of (varivax)(chicken 00:00:00 [place] [facility] pox) Branch HEPATITIS A 2006-11-25 Completed [facility] of 00:00:00 [facility] DTAP 2006-11-25 Completed [facility] of 00:00:00 [facility] MMR 2006-11-25 Completed [facility] of 00:00:00 [facility] Polio (IPV/OPV) 2006-11-25 Completed [facility] 00:00:00 [facility] Varicella 2006-11-25 Completed [facility] (varivax)(chicken 00:00:00 [place] [facility] pox) [facility] HEPATITIS A 2006-11-25 Completed [facility] 00:00:00 [facility] DTAP 2006-11-25 Completed [facility] of 00:00:00 [facility] MMR 2006-11-25 Completed [facility] of 00:00:00 [facility] Polio (IPV/OPV) 2006-11-25 Completed [facility] 00:00:00 [facility] Varicella 2006-11-25 Completed [facility] (varivax)(chicken 00:00:00 [place] [facility] pox) Branch HEPATITIS A 2006-11-25 Completed [facility] 00:00:00 [facility] DTAP 2006-11-25 Completed [facility] of 00:00:00 [facility] DTAP 2006-11-25 Completed [facility] 00:00:00 [facility] MMR 2006-11-25 Completed [facility] of 00:00:00 [facility] Polio (IPV/OPV) 2006-11-25 Completed [facility] 00:00:00 [facility] Varicella 2006-11-25 Completed [facility] (varivax)(chicken 00:00:00 [facility] edical pox) Branch HEPATITIS A 2006-11-25 Completed [facility] of 00:00:00 [facility] DTAP 2006-11-25 Completed [facility] 00:00:00 [facility] MMR 2006-11-25 Completed [facility] 00:00:00 [facility] MMR 2006-11-25 Completed [facility] 00:00:00 [facility] Polio (IPV/OPV) 2006-11-25 Completed [facility] 00:00:00 [facility] Varicella 2006-11-25 Completed [facility] (varivax)(chicken 00:00:00 [facility] edical pox) Branch HEPATITIS A 2006-11-25 Completed [facility] 00:00:00 [facility] DTAP 2006-11-25 Completed [facility] of 00:00:00 [facility] MMR 2006-11-25 Completed [facility] of 00:00:00 [facility] Polio (IPV/OPV) 2006-11-25 Completed [facility] 00:00:00 [facility] Varicella 2006-11-25 Completed [facility] (varivax)(chicken 00:00:00 [place] [facility] pox) [facility] Polio (IPV/OPV) 2006-11-25 Completed [facility] 00:00:00 [facility] Varicella 2006-11-25 Completed [facility] (varivax)(chicken 00:00:00 [place] [facility] pox) [facility] MMR 2003-03-01 Completed [facility] 00:00:00 [facility] Pneumococcal 7 2003-03-01 Completed [facility] of Conjugate, PCV7 00:00:00 [facility] ical (Prevnar7) Branch Polio (IPV/OPV) 2003-03-01 Completed [facility] 00:00:00 [facility] Varicella 2003-03-01 Completed [facility] (varivax)(chicken 00:00:00 [place] [facility] pox) [facility] DTAP 2003-03-01 Completed [facility] 00:00:00 [facility] HIB 4 Dose Schedule 2003-03-01 Completed Unive rsity of 00:00:00 [facility] MMR 2003-03-01 Completed [facility] 00:00:00 [facility] Pneumococcal 7 2003-03-01 Completed [facility] of Conjugate, PCV7 00:00:00 [place] [facility] (Prevnar7) Branch Polio (IPV/OPV) 2003-03-01 Completed [facility] 00:00:00 [facility] Varicella 2003-03-01 Completed [facility] of (varivax)(chicken 00:00:00 [facility] edical pox) Branch DTAP 2003-03-01 Completed [facility] 00:00:00 [facility] HIB 4 Dose Schedule 2003-03-01 Completed [facility]ive rsity of 00:00:00 [facility] MMR 2003-03-01 Completed [facility] 00:00:00 [facility] Pneumococcal 7 2003-03-01 Completed [facility] of Conjugate, PCV7 00:00:00 [place] [facility] (Prevnar7) Branch Polio (IPV/OPV) 2003-03-01 Completed [facility] 00:00:00 [facility] Varicella 2003-03-01 Completed [facility] of (varivax)(chicken 00:00:00 [facility] ed[facility] pox) Branch DTAP 2003-03-01 Completed [facility] 00:00:00 [facility] DTAP 2003-03-01 Completed [facility] of 00:00:00 [facility] HIB 4 Dose Schedule 2003-03-01 Completed Unive rsity of 00:00:00 [facility] MMR 2003-03-01 Completed [facility] of 00:00:00 [facility] Pneumococcal 7 2003-03-01 Completed [facility] of Conjugate, PCV7 00:00:00 [place] [facility] (Prevnar7) Branch Polio (IPV/OPV) 2003-03-01 Completed [facility] 00:00:00 [facility] HIB 4 Dose Schedule 2003-03-01 Completed Unive rsity of 00:00:00 [facility] Varicella 2003-03-01 Completed [facility] of (varivax)(chicken 00:00:00 [facility] ed[facility] pox) Branch MMR 2003-03-01 Completed [facility] of 00:00:00 [facility] DTAP 2003-03-01 Completed [facility] of 00:00:00 [facility] HIB 4 Dose Schedule 2003-03-01 Completed [facility]ive rsity of 00:00:00 [facility] MMR 2003-03-01 Completed [facility] 00:00:00 [facility] Pneumococcal 7 2003-03-01 Completed [facility] Conjugate, PCV7 00:00:00 [place] [facility] (Prevnar7) Branch Polio (IPV/OPV) 2003-03-01 Completed [facility] 00:00:00 [facility] Varicella 2003-03-01 Completed [facility] of (varivax)(chicken 00:00:00 [facility] ed[facility] pox) Branch Pneumococcal 7 2003-03-01 Completed [facility] of Conjugate, PCV7 00:00:00 [place] [facility] (Prevnar7) Branch DTAP 2003-03-01 Completed [facility] 00:00:00 [facility] HIB 4 Dose Schedule 2003-03-01 Completed Unive rsity of 00:00:00 [facility] MMR 2003-03-01 Completed [facility] of 00:00:00 [facility] Pneumococcal 7 2003-03-01 Completed [facility] Conjugate, PCV7 00:00:00 [place] [facility] (Prevnar7) Branch Polio (IPV/OPV) 2003-03-01 Completed [facility] 00:00:00 [facility] Varicella 2003-03-01 Completed [facility] of (varivax)(chicken 00:00:00 [facility] ed[facility] pox) Branch Polio (IPV/OPV) 2003-03-01 Completed [facility] 00:00:00 [facility] DTAP 2003-03-01 Completed [facility] of 00:00:00 [facility] HIB 4 Dose Schedule 2003-03-01 Completed [facility]ive rsity of 00:00:00 [facility] MMR 2003-03-01 Completed [facility] of 00:00:00 [facility] Varicella 2003-03-01 Completed [facility] (varivax)(chicken 00:00:00 [facility] ed[facility] pox) Branch Pneumococcal 7 2003-03-01 Completed [facility] of Conjugate, PCV7 00:00:00 [place] [facility] (Prevnar7) Branch Polio (IPV/OPV) 2003-03-01 Completed [facility] 00:00:00 [facility] Varicella 2003-03-01 Completed [facility] (varivax)(chicken 00:00:00 [place] [facility] pox) Branch DTAP 2003-03-01 Completed [facility] 00:00:00 [facility] HIB 4 Dose Schedule 2003-03-01 Completed Unive rsity of 00:00:00 [facility] MMR 2003-03-01 Completed [facility] of 00:00:00 [facility] Pneumococcal 7 2003-03-01 Completed [facility] of Conjugate, PCV7 00:00:00 [place] [facility] (Prevnar7) Branch Polio (IPV/OPV) 2003-03-01 Completed [facility] 00:00:00 [facility] Varicella 2003-03-01 Completed [facility] (varivax)(chicken 00:00:00 [place] [facility] pox) Branch DTAP 2003-03-01 Completed [facility] 00:00:00 [facility] HIB 4 Dose Schedule 2003-03-01 Completed [facility]ive rsity of 00:00:00 [facility] MMR 2003-03-01 Completed [facility] of 00:00:00 [facility] Pneumococcal 7 2003-03-01 Completed [facility] of Conjugate, PCV7 00:00:00 [place] [facility] (Prevnar7) Branch Polio (IPV/OPV) 2003-03-01 Completed [facility] 00:00:00 [facility] Varicella 2003-03-01 Completed [facility] of (varivax)(chicken 00:00:00 [facility] ed[facility] pox) Branch DTAP 2003-03-01 Completed [facility] 00:00:00 [facility] HIB 4 Dose Schedule 2003-03-01 Completed Unive rsity of 00:00:00 [facility] MMR 2003-03-01 Completed [facility] 00:00:00 [facility] Pneumococcal 7 2003-03-01 Completed [facility] of Conjugate, PCV7 00:00:00 [place] [facility] (Prevnar7) Branch Polio (IPV/OPV) 2003-03-01 Completed [facility] 00:00:00 [facility] Varicella 2003-03-01 Completed [facility] of (varivax)(chicken 00:00:00 [facility] ed[facility] pox) Branch DTAP 2003-03-01 Completed [facility] of 00:00:00 [facility] HIB 4 Dose Schedule 2003-03-01 Completed Unive rsity of 00:00:00 [facility] MMR 2003-03-01 Completed [facility] 00:00:00 [facility] Pneumococcal 7 2003-03-01 Completed [facility] of Conjugate, PCV7 00:00:00 [place] [facility] (Prevnar7) Branch Polio (IPV/OPV) 2003-03-01 Completed [facility] 00:00:00 [facility] Varicella 2003-03-01 Completed [facility] of (varivax)(chicken 00:00:00 [facility] ed[facility] pox) Branch DTAP 2003-03-01 Completed [facility] of 00:00:00 [facility] DTAP 2003-03-01 Completed [facility] of 00:00:00 [facility] HIB 4 Dose Schedule 2003-03-01 Completed [facility]ive rsity of 00:00:00 [facility] MMR 2003-03-01 Completed [facility] of 00:00:00 [facility] Pneumococcal 7 2003-03-01 Completed [facility] Conjugate, PCV7 00:00:00 [place] [facility] (Prevnar7) Branch Polio (IPV/OPV) 2003-03-01 Completed [facility] 00:00:00 [facility] Varicella 2003-03-01 Completed [facility] (varivax)(chicken 00:00:00 [facility] ed[facility] pox) Branch HIB 4 Dose Schedule 2003-03-01 Completed [facility]ive rsity of 00:00:00 [facility] MMR 2003-03-01 Completed [facility] of 00:00:00 [facility] DTAP 2003-03-01 Completed [facility] of 00:00:00 [facility] HIB 4 Dose Schedule 2003-03-01 Completed [facility]ive rsity of 00:00:00 [facility] MMR 2003-03-01 Completed [facility] 00:00:00 [facility] Pneumococcal 7 2003-03-01 Completed [facility] of Conjugate, PCV7 00:00:00 [place] [facility] (Prevnar7) Branch Polio (IPV/OPV) 2003-03-01 Completed [facility] 00:00:00 [facility] Varicella 2003-03-01 Completed [facility] of (varivax)(chicken 00:00:00 [facility] ed[facility] pox) Branch Pneumococcal 7 2003-03-01 Completed [facility] Conjugate, PCV7 00:00:00 [place] [facility] (Prevnar7) Branch Polio (IPV/OPV) 2003-03-01 Completed [facility] 00:00:00 [facility] Varicella 2003-03-01 Completed [facility] of (varivax)(chicken 00:00:00 [facility] ed[facility] pox) Branch DTAP 2003-03-01 Completed [facility] of 00:00:00 [facility] HIB 4 Dose Schedule 2003-03-01 Completed Unive rsity of 00:00:00 [facility] MMR 2003-03-01 Completed [facility] 00:00:00 [facility] Pneumococcal 7 2003-03-01 Completed [facility] of Conjugate, PCV7 00:00:00 [place] [facility] (Prevnar7) Branch Polio (IPV/OPV) 2003-03-01 Completed [facility] 00:00:00 [facility] Varicella 2003-03-01 Completed [facility] of (varivax)(chicken 00:00:00 [facility] ed[facility] pox) Branch DTAP 2003-03-01 Completed [facility] of 00:00:00 [facility] HIB 4 Dose Schedule 2003-03-01 Completed Unive rsity of 00:00:00 [facility] MMR 2003-03-01 Completed [facility] of 00:00:00 [facility] Pneumococcal 7 2003-03-01 Completed [facility] of Conjugate, PCV7 00:00:00 [place] [facility] (Prevnar7) Branch Polio (IPV/OPV) 2003-03-01 Completed [facility] 00:00:00 [facility] Varicella 2003-03-01 Completed [facility] of (varivax)(chicken 00:00:00 [facility] ed[facility] pox) Branch DTAP 2003-03-01 Completed [facility] of 00:00:00 [facility] HIB 4 Dose Schedule 2003-03-01 Completed Unive rsity of 00:00:00 [facility] MMR 2003-03-01 Completed [facility] of 00:00:00 [facility] Pneumococcal 7 2003-03-01 Completed [facility] of Conjugate, PCV7 00:00:00 [place] [facility] (Prevnar7) Branch Polio (IPV/OPV) 2003-03-01 Completed [facility] 00:00:00 [facility] Varicella 2003-03-01 Completed [facility] (varivax)(chicken 00:00:00 [place] [facility] pox) Branch DTAP 2003-03-01 Completed [facility] 00:00:00 [facility] HIB 4 Dose Schedule 2003-03-01 Completed [facility]ive rsity of 00:00:00 [facility] MMR 2003-03-01 Completed [facility] 00:00:00 [facility] Pneumococcal 7 2003-03-01 Completed [facility] Conjugate, PCV7 00:00:00 [place] [facility] (Prevnar7) Branch Polio (IPV/OPV) 2003-03-01 Completed [facility] 00:00:00 [facility] Varicella 2003-03-01 Completed [facility] (varivax)(chicken 00:00:00 [place] [facility] pox) Branch DTAP 2003-03-01 Completed [facility] 00:00:00 [facility] HIB 4 Dose Schedule 2003-03-01 Completed Unive rsity of 00:00:00 [facility] MMR 2003-03-01 Completed [facility] of 00:00:00 [facility] Pneumococcal 7 2003-03-01 Completed [facility] of Conjugate, PCV7 00:00:00 [place] [facility] (Prevnar7) Branch Polio (IPV/OPV) 2003-03-01 Completed [facility] 00:00:00 [facility] Varicella 2003-03-01 Completed [facility] of (varivax)(chicken 00:00:00 [facility] ed[facility] pox) Branch DTAP 2003-03-01 Completed [facility] of 00:00:00 [facility] DTAP 2003-03-01 Completed [facility] of 00:00:00 [facility] HIB 4 Dose Schedule 2003-03-01 Completed Unive rsity of 00:00:00 [facility] MMR 2003-03-01 Completed [facility] of 00:00:00 [facility] Pneumococcal 7 2003-03-01 Completed [facility] of Conjugate, PCV7 00:00:00 [place] [facility] (Prevnar7) Branch Polio (IPV/OPV) 2003-03-01 Completed [facility] 00:00:00 [facility] HIB 4 Dose Schedule 2003-03-01 Completed Unive rsity of 00:00:00 [facility] Varicella 2003-03-01 Completed [facility] of (varivax)(chicken 00:00:00 [facility] ed[facility] pox) Branch MMR 2003-03-01 Completed [facility] of 00:00:00 [facility] DTAP 2003-03-01 Completed [facility] of 00:00:00 [facility] HIB 4 Dose Schedule 2003-03-01 Completed Unive rsity of 00:00:00 [facility] MMR 2003-03-01 Completed [facility] of 00:00:00 [facility] Pneumococcal 7 2003-03-01 Completed [facility] of Conjugate, PCV7 00:00:00 [place] [facility] (Prevnar7) Branch Polio (IPV/OPV) 2003-03-01 Completed [facility] 00:00:00 [facility] Varicella 2003-03-01 Completed [facility] of (varivax)(chicken 00:00:00 [facility] ed[facility] pox) Branch Pneumococcal 7 2003-03-01 Completed [facility] of Conjugate, PCV7 00:00:00 [place] [facility] (Prevnar7) Branch DTAP 2003-03-01 Completed [facility] of 00:00:00 [facility] HIB 4 Dose Schedule 2003-03-01 Completed Unive rsity of 00:00:00 [facility] MMR 2003-03-01 Completed [facility] of 00:00:00 [facility] Pneumococcal 7 2003-03-01 Completed [facility] of Conjugate, PCV7 00:00:00 [place] [facility] (Prevnar7) Branch Polio (IPV/OPV) 2003-03-01 Completed [facility] 00:00:00 [facility] Varicella 2003-03-01 Completed [facility] of (varivax)(chicken 00:00:00 [facility] ed[facility] pox) Branch Polio (IPV/OPV) 2003-03-01 Completed [facility] 00:00:00 [facility] Varicella 2003-03-01 Completed [facility] of (varivax)(chicken 00:00:00 [facility] ed[facility] pox) Branch DTAP 2003-03-01 Completed [facility] of 00:00:00 [facility] HIB 4 Dose Schedule 2003-03-01 Completed Unive rsity of 00:00:00 [facility] MMR 2003-03-01 Completed [facility] of 00:00:00 [facility] Pneumococcal 7 2003-03-01 Completed [facility] of Conjugate, PCV7 00:00:00 [place] [facility] (Prevnar7) Branch Polio (IPV/OPV) 2003-03-01 Completed [facility] 00:00:00 [facility] Varicella 2003-03-01 Completed [facility] of (varivax)(chicken 00:00:00 [facility] ed[facility] pox) Branch DTAP 2003-03-01 Completed [facility] of 00:00:00 [facility] HIB 4 Dose Schedule 2003-03-01 Completed Unive rsity of 00:00:00 [facility] MMR 2003-03-01 Completed [facility] of 00:00:00 [facility] Pneumococcal 7 2003-03-01 Completed [facility] of Conjugate, PCV7 00:00:00 [place] [facility] (Prevnar7) Branch Polio (IPV/OPV) 2003-03-01 Completed [facility] 00:00:00 [facility] Varicella 2003-03-01 Completed [facility] of (varivax)(chicken 00:00:00 [place] [facility] pox) Branch DTAP 2003-03-01 Completed [facility] 00:00:00 [facility] HIB 4 Dose Schedule 2003-03-01 Completed Unive rsity of 00:00:00 [facility] MMR 2003-03-01 Completed [facility] of 00:00:00 [facility] Pneumococcal 7 2003-03-01 Completed [facility] of Conjugate, PCV7 00:00:00 [place] [facility] (Prevnar7) Branch Polio (IPV/OPV) 2003-03-01 Completed [facility] 00:00:00 [facility] Varicella 2003-03-01 Completed [facility] of (varivax)(chicken 00:00:00 [facility] ed[facility] pox) Branch DTAP 2003-03-01 Completed [facility] of 00:00:00 [facility] HIB 4 Dose Schedule 2003-03-01 Completed Unive rsity of 00:00:00 [facility] MMR 2003-03-01 Completed [facility] of 00:00:00 [facility] Pneumococcal 7 2003-03-01 Completed [facility] of Conjugate, PCV7 00:00:00 [place] [facility] (Prevnar7) Branch Polio (IPV/OPV) 2003-03-01 Completed [facility] 00:00:00 [facility] Varicella 2003-03-01 Completed [facility] of (varivax)(chicken 00:00:00 [facility] ed[facility] pox) Branch DTAP 2003-03-01 Completed [facility] of 00:00:00 [facility] HIB 4 Dose Schedule 2003-03-01 Completed Unive rsity of 00:00:00 [facility] MMR 2003-03-01 Completed [facility] of 00:00:00 [facility] Pneumococcal 7 2003-03-01 Completed [facility] of Conjugate, PCV7 00:00:00 [place] [facility] (Prevnar7) Branch Polio (IPV/OPV) 2003-03-01 Completed [facility] 00:00:00 [facility] Varicella 2003-03-01 Completed [facility] of (varivax)(chicken 00:00:00 [facility] ed[facility] pox) Branch DTAP 2003-03-01 Completed [facility] of 00:00:00 [facility] HIB 4 Dose Schedule 2003-03-01 Completed Unive rsity of 00:00:00 [facility] MMR 2003-03-01 Completed [facility] of 00:00:00 [facility] Pneumococcal 7 2003-03-01 Completed [facility] of Conjugate, PCV7 00:00:00 [place] [facility] (Prevnar7) Branch Polio (IPV/OPV) 2003-03-01 Completed [facility] 00:00:00 [facility] Varicella 2003-03-01 Completed [facility] of (varivax)(chicken 00:00:00 [place] [facility] pox) Branch DTAP 2003-03-01 Completed [facility] 00:00:00 [facility] HIB 4 Dose Schedule 2003-03-01 Completed Unive rsity of 00:00:00 [facility] MMR 2003-03-01 Completed [facility] of 00:00:00 [facility] Pneumococcal 7 2003-03-01 Completed [facility] of Conjugate, PCV7 00:00:00 [place] [facility] (Prevnar7) Branch Polio (IPV/OPV) 2003-03-01 Completed [facility] 00:00:00 [facility] Varicella 2003-03-01 Completed [facility] of (varivax)(chicken 00:00:00 [facility] ed[facility] pox) Branch DTAP 2003-03-01 Completed [facility] of 00:00:00 [facility] HIB 4 Dose Schedule 2003-03-01 Completed Unive rsity of 00:00:00 [facility] MMR 2003-03-01 Completed [facility] of 00:00:00 [facility] Pneumococcal 7 2003-03-01 Completed [facility] of Conjugate, PCV7 00:00:00 [facility] ical (Prevnar7) Branch Polio (IPV/OPV) 2003-03-01 Completed [facility] 00:00:00 [facility] Varicella 2003-03-01 Completed [facility] of (varivax)(chicken 00:00:00 [facility] ed[facility] pox) Branch DTAP 2003-03-01 Completed [facility] of 00:00:00 [facility] DTAP 2003-03-01 Completed [facility] of 00:00:00 [facility] HIB 4 Dose Schedule 2003-03-01 Completed Unive rsity of 00:00:00 [facility] MMR 2003-03-01 Completed [facility] of 00:00:00 [facility] Pneumococcal 7 2003-03-01 Completed [facility] of Conjugate, PCV7 00:00:00 [place] [facility] (Prevnar7) Branch Polio (IPV/OPV) 2003-03-01 Completed [facility] 00:00:00 [facility] Varicella 2003-03-01 Completed [facility] of (varivax)(chicken 00:00:00 [facility] ed[facility] pox) Branch HIB 4 Dose Schedule 2003-03-01 Completed Unive rsity of 00:00:00 [facility] MMR 2003-03-01 Completed [facility] of 00:00:00 [facility] DTAP 2003-03-01 Completed [facility] of 00:00:00 [facility] HIB 4 Dose Schedule 2003-03-01 Completed Unive rsity of 00:00:00 [facility] MMR 2003-03-01 Completed [facility] of 00:00:00 [facility] Pneumococcal 7 2003-03-01 Completed [facility] of Conjugate, PCV7 00:00:00 [place] [facility] (Prevnar7) Branch Polio (IPV/OPV) 2003-03-01 Completed [facility] 00:00:00 [facility] Varicella 2003-03-01 Completed [facility] of (varivax)(chicken 00:00:00 [facility] ed[facility] pox) Branch DTAP 2003-03-01 Completed [facility] of 00:00:00 [facility] Pneumococcal 7 2003-03-01 Completed [facility] of Conjugate, PCV7 00:00:00 [place] [facility] (Prevnar7) Branch HIB 4 Dose Schedule 2003-03-01 Completed [facility]ive rsity of 00:00:00 [facility] MMR 2003-03-01 Completed [facility] of 00:00:00 [facility] Pneumococcal 7 2003-03-01 Completed [facility] of Conjugate, PCV7 00:00:00 [place] [facility] (Prevnar7) Branch Polio (IPV/OPV) 2003-03-01 Completed [facility] 00:00:00 [facility] Varicella 2003-03-01 Completed [facility] of (varivax)(chicken 00:00:00 [facility] ed[facility] pox) Branch Polio (IPV/OPV) 2003-03-01 Completed [facility] 00:00:00 [facility] Varicella 2003-03-01 Completed [facility] of (varivax)(chicken 00:00:00 [facility] ed[facility] pox) Branch DTAP 2003-03-01 Completed [facility] of 00:00:00 [facility] HIB 4 Dose Schedule 2003-03-01 Completed Unive rsity of 00:00:00 [facility] MMR 2003-03-01 Completed [facility] of 00:00:00 [facility] Pneumococcal 7 2003-03-01 Completed [facility] Conjugate, PCV7 00:00:00 [place] [facility] (Prevnar7) Branch Polio (IPV/OPV) 2003-03-01 Completed [facility] 00:00:00 [facility] Varicella 2003-03-01 Completed [facility] of (varivax)(chicken 00:00:00 [place] [facility] pox) Branch DTAP 2003-03-01 Completed [facility] 00:00:00 [facility] HIB 4 Dose Schedule 2003-03-01 Completed [facility]ive rsity of 00:00:00 [facility] MMR 2003-03-01 Completed [facility] of 00:00:00 [facility] Pneumococcal 7 2003-03-01 Completed [facility] of Conjugate, PCV7 00:00:00 [place] [facility] (Prevnar7) Branch Polio (IPV/OPV) 2003-03-01 Completed [facility] 00:00:00 [facility] Varicella 2003-03-01 Completed [facility] (varivax)(chicken 00:00:00 [place] [facility] pox) Branch DTAP 2003-03-01 Completed [facility] 00:00:00 [facility] HIB 4 Dose Schedule 2003-03-01 Completed [facility] 00:00:00 [facility] Pneumococcal 7 2002 Completed [facility] Conjugate, PCV7 00:00:00 [facility] Pneumococcal 7 2002 Completed [facility] Conjugate, PCV7 00:00:00 [facility] ([facility] Pneumococcal 7 2002 Completed [facility] Conjugate, PCV7 00:00:00 [facility] (Pre[facility] Pneumococcal 7 2002 Completed [facility] Conjugate, PCV7 00:00:00 [facility] (Pre[facility] Pneumococcal 7 2002 Completed [facility] Conjugate, PCV7 00:00:00 [facility] (Pre[facility] Pneumococcal 7 2002 Completed [facility] Conjugate, PCV7 00:00:00 [facility] (Pre[facility] Pneumococcal 7 2002 Completed [facility] Conjugate, PCV7 00:00:00 [facility] (Pre[facility]ar[facility] Pneumococcal 7 2002 Completed [facility] Conjugate, PCV7 00:00:00 [facility] (Pre[facility]ar[facility] Pneumococcal 7 2002 Completed [facility] Conjugate, PCV7 00:00:00 [facility] (Pre[facility] Pneumococcal 7 2002 Completed [facility] Conjugate, PCV7 00:00:00 [facility] ([facility] Pneumococcal 7 2002 Completed [facility] Conjugate, PCV7 00:00:00 [facility] (Pre[facility] Pneumococcal 7 2002 Completed [facility] Conjugate, PCV7 00:00:00 [facility] (Pre[facility] Pneumococcal 7 2002 Completed [facility] Conjugate, PCV7 00:00:00 [facility] (Pre[facility]ar[facility]) [facility] Pneumococcal 7 2002 Completed [facility] Conjugate, PCV7 00:00:00 [facility] (Pre[facility]ar[facility] Pneumococcal 7 2002 Completed [facility] Conjugate, PCV7 00:00:00 [facility] (Pre[facility]ar[facility] Pneumococcal 7 2002 Completed [facility] Conjugate, PCV7 00:00:00 [facility] (Pre[facility]ar[facility]) [facility] Pneumococcal 7 2002 Completed [facility] Conjugate, PCV7 00:00:00 [facility] (Pre[facility]ar[facility] Pneumococcal 7 2002 Completed [facility] Conjugate, PCV7 00:00:00 [facility] (Pre[facility] Pneumococcal 7 2002 Completed [facility] Conjugate, PCV7 00:00:00 [facility] (Pre[facility]ar[facility] Pneumococcal 7 2002 Completed [facility] Conjugate, PCV7 00:00:00 [facility] (Pre[facility]ar[facility] Pneumococcal 7 2002 Completed [facility] Conjugate, PCV7 00:00:00 [facility] (Pre[facility]ar[facility] Pneumococcal 7 2002 Completed [facility] Conjugate, PCV7 00:00:00 [facility] (Pre[facility]ar[facility] Pneumococcal 7 2002 Completed [facility] Conjugate, PCV7 00:00:00 [facility] (Pre[facility]ar[facility] Pneumococcal 7 2002 Completed [facility] Conjugate, PCV7 00:00:00 [facility] (Pre[facility]ar[facility] Pneumococcal 7 2002 Completed [facility] Conjugate, PCV7 00:00:00 [facility] (Pre[facility]ar[facility] Pneumococcal 7 2002 Completed [facility] Conjugate, PCV7 00:00:00 [facility] (Pre[facility]ar[facility] Pneumococcal 7 2002 Completed [facility] Conjugate, PCV7 00:00:00 [facility] (Prevnar[facility]) [facility] Pneumococcal 7 2002 Completed [facility] Conjugate, PCV7 00:00:00 [facility] (Pre[facility]ar[facility]) [facility] Pneumococcal 7 2002 Completed [facility] Conjugate, PCV7 00:00:00 [facility] (Pre[facility]ar[facility]) [facility] Pneumococcal 7 2002 Completed [facility] Conjugate, PCV7 00:00:00 [facility] (Pre[facility]ar[facility]) [facility] Pneumococcal 7 2002 Completed [facility] Conjugate, PCV7 00:00:00 [facility] (Pre[facility]ar[facility]) [facility] Pneumococcal 7 2002 Completed [facility] Conjugate, PCV7 00:00:00 [facility] (Prevnar[facility]) [facility] Pneumococcal 7 2002 Completed [facility] Conjugate, PCV7 00:00:00 [facility] (Pre[facility]ar[facility]) [facility] Pneumococcal 7 2002 Completed [facility] Conjugate, PCV7 00:00:00 [facility] (Pre[facility]ar[facility]) [facility] Pneumococcal 7 2002 Completed [facility] Conjugate, PCV7 00:00:00 [facility] (Prevnar[facility]) [facility] Pneumococcal 7 2002 Completed [facility] Conjugate, PCV7 00:00:00 [facility] (Pre[facility]ar[facility]) [facility] Pneumococcal 7 2002 Completed [facility] Conjugate, PCV7 00:00:00 [facility] (Pre[facility]ar[facility] Pneumococcal 7 2002 Completed [facility] Conjugate, PCV7 00:00:00 [facility] (Pre[facility]ar[facility] DTAP 2002 Completed [facility] 00:00:00 [facility] HIB 4 Dose Schedule 2002 Completed [facility] 00:00:00 [facility] Hep B, Adol or Pedi 2002 Completed [facility] Dosage 00:00:00 [facility] DTAP 2002 Completed [facility] 00:00:00 [facility] HIB 4 Dose Schedule 2002 Completed [facility] 00:00:00 [facility] Hep B, Adol or Pedi 2002 Completed [facility] Dosage 00:00:00 [facility] DTAP 2002 Completed [facility] 00:00:00 [facility] HIB 4 Dose Schedule 2002 Completed [facility] 00:00:00 [facility] Hep B, Adol or Pedi 2002 Completed [facility] Dosage 00:00:00 [facility] DTAP 2002 Completed [facility] 00:00:00 [facility] HIB 4 Dose Schedule 2002 Completed [facility] 00:00:00 [facility] Hep B, Adol or Pedi 2002 Completed [facility] Dosage 00:00:00 [facility] DTAP 2002 Completed [facility] 00:00:00 [facility] HIB 4 Dose Schedule 2002 Completed [facility] 00:00:00 [facility] Hep B, Adol or Pedi 2002 Completed [facility] Dosage 00:00:00 [facility] DTAP 2002 Completed [facility] 00:00:00 [facility] DTAP 2002 Completed [facility] 00:00:00 [facility] HIB 4 Dose Schedule 2002 Completed [facility] 00:00:00 [facility] HIB 4 Dose Schedule 2002 Completed [facility] 00:00:00 [facility] Hep B, Adol or Pedi 2002 Completed [facility] Dosage 00:00:00 [facility] Hep B, Adol or Pedi 2002 Completed [facility] Dosage 00:00:00 [facility] DTAP 2002 Completed [facility] 00:00:00 [facility] HIB 4 Dose Schedule 2002 Completed [facility] 00:00:00 [facility] Hep B, Adol or Pedi 2002 Completed [facility] Dosage 00:00:00 [facility] DTAP 2002 Completed [facility] 00:00:00 [facility] HIB 4 Dose Schedule 2002 Completed [facility] 00:00:00 [facility] Hep B, Adol or Pedi 2002 Completed [facility] Dosage 00:00:00 [facility] DTAP 2002 Completed [facility] 00:00:00 [facility] HIB 4 Dose Schedule 2002 Completed [facility] 00:00:00 [facility] Hep B, Adol or Pedi 2002 Completed [facility] Dosage 00:00:00 [facility] DTAP 2002 Completed [facility] 00:00:00 [facility] HIB 4 Dose Schedule 2002 Completed [facility] 00:00:00 [facility] Hep B, Adol or Pedi 2002 Completed [facility] Dosage 00:00:00 [facility] DTAP 2002 Completed [facility] 00:00:00 [facility] HIB 4 Dose Schedule 2002 Completed [facility] 00:00:00 [facility] Hep B, Adol or Pedi 2002 Completed [facility] Dosage 00:00:00 [facility] DTAP 2002 Completed [facility] 00:00:00 [facility] HIB 4 Dose Schedule 2002 Completed [facility] 00:00:00 [facility] Hep B, Adol or Pedi 2002 Completed [facility] Dosage 00:00:00 [facility] DTAP 2002 Completed [facility] 00:00:00 [facility] HIB 4 Dose Schedule 2002 Completed [facility] 00:00:00 [facility] Hep B, Adol or Pedi 2002 Completed [facility] Dosage 00:00:00 [facility] DTAP 2002 Completed [facility] 00:00:00 [facility] DTAP 2002 Completed [facility] 00:00:00 [facility] HIB 4 Dose Schedule 2002 Completed [facility] 00:00:00 [facility] Hep B, Adol or Pedi 2002 Completed [facility] Dosage 00:00:00 [facility] HIB 4 Dose Schedule 2002 Completed [facility] 00:00:00 [facility] Hep B, Adol or Pedi 2002 Completed [facility] Dosage 00:00:00 [facility] DTAP 2002 Completed [facility] 00:00:00 [facility] HIB 4 Dose Schedule 2002 Completed [facility] 00:00:00 [facility] Hep B, Adol or Pedi 2002 Completed [facility] Dosage 00:00:00 [facility] DTAP 2002 Completed [facility] 00:00:00 [facility] HIB 4 Dose Schedule 2002 Completed [facility] 00:00:00 [facility] Hep B, Adol or Pedi 2002 Completed [facility] Dosage 00:00:00 [facility] DTAP 2002 Completed [facility] 00:00:00 [facility] HIB 4 Dose Schedule 2002 Completed [facility] 00:00:00 [facility] Hep B, Adol or Pedi 2002 Completed [facility] Dosage 00:00:00 [facility] DTAP 2002 Completed [facility] 00:00:00 [facility] HIB 4 Dose Schedule 2002 Completed [facility] 00:00:00 [facility] Hep B, Adol or Pedi 2002 Completed [facility] Dosage 00:00:00 [facility] DTAP 2002 Completed [facility] 00:00:00 [facility] HIB 4 Dose Schedule 2002 Completed [facility] 00:00:00 [facility] Hep B, Adol or Pedi 2002 Completed [facility] Dosage 00:00:00 [facility] DTAP 2002 Completed [facility] 00:00:00 [facility] HIB 4 Dose Schedule 2002 Completed [facility] 00:00:00 [facility] Hep B, Adol or Pedi 2002 Completed [facility] Dosage 00:00:00 [facility] DTAP 2002 Completed [facility] 00:00:00 [facility] DTAP 2002 Completed [facility] 00:00:00 [facility] HIB 4 Dose Schedule 2002 Completed [facility] 00:00:00 [facility] HIB 4 Dose Schedule 2002 Completed [facility] 00:00:00 [facility] Hep B, Adol or Pedi 2002 Completed [facility] Dosage 00:00:00 [facility] Hep B, Adol or Pedi 2002 Completed [facility] Dosage 00:00:00 [facility] DTAP 2002 Completed [facility] 00:00:00 [facility] HIB 4 Dose Schedule 2002 Completed [facility] 00:00:00 [facility] Hep B, Adol or Pedi 2002 Completed [facility] Dosage 00:00:00 [facility] DTAP 2002 Completed [facility] 00:00:00 [facility] HIB 4 Dose Schedule 2002 Completed [facility] 00:00:00 [facility] Hep B, Adol or Pedi 2002 Completed [facility] Dosage 00:00:00 [facility] DTAP 2002 Completed [facility] 00:00:00 [facility] HIB 4 Dose Schedule 2002 Completed [facility] 00:00:00 [facility] Hep B, Adol or Pedi 2002 Completed [facility] Dosage 00:00:00 [facility] DTAP 2002 Completed [facility] 00:00:00 [facility] HIB 4 Dose Schedule 2002 Completed [facility] 00:00:00 [facility] Hep B, Adol or Pedi 2002 Completed [facility] Dosage 00:00:00 [facility] DTAP 2002 Completed [facility] 00:00:00 [facility] HIB 4 Dose Schedule 2002 Completed [facility] 00:00:00 [facility] Hep B, Adol or Pedi 2002 Completed [facility] Dosage 00:00:00 [facility] DTAP 2002 Completed [facility] 00:00:00 [facility] HIB 4 Dose Schedule 2002 Completed [facility] 00:00:00 [facility] Hep B, Adol or Pedi 2002 Completed [facility] Dosage 00:00:00 [facility] DTAP 2002 Completed [facility] 00:00:00 [facility] HIB 4 Dose Schedule 2002 Completed [facility] 00:00:00 [facility] Hep B, Adol or Pedi 2002 Completed [facility] Dosage 00:00:00 [facility] DTAP 2002 Completed [facility] 00:00:00 [facility] HIB 4 Dose Schedule 2002 Completed [facility] 00:00:00 [facility] Hep B, Adol or Pedi 2002 Completed [facility] Dosage 00:00:00 [facility] DTAP 2002 Completed [facility] 00:00:00 [facility] HIB 4 Dose Schedule 2002 Completed [facility] 00:00:00 [facility] Hep B, Adol or Pedi 2002 Completed [facility] Dosage 00:00:00 [facility] DTAP 2002 Completed [facility] 00:00:00 [facility] HIB 4 Dose Schedule 2002 Completed [facility] 00:00:00 [facility] Hep B, Adol or Pedi 2002 Completed [facility] Dosage 00:00:00 [facility] DTAP 2002 Completed [facility] 00:00:00 [facility] DTAP 2002 Completed [facility] 00:00:00 [facility] HIB 4 Dose Schedule 2002 Completed [facility] 00:00:00 [facility] Hep B, Adol or Pedi 2002 Completed [facility] Dosage 00:00:00 [facility] HIB 4 Dose Schedule 2002 Completed [facility] 00:00:00 [facility] Hep B, Adol or Pedi 2002 Completed [facility] Dosage 00:00:00 [facility] DTAP 2002 Completed [facility] 00:00:00 [facility] HIB 4 Dose Schedule 2002 Completed [facility] 00:00:00 [facility] Hep B, Adol or Pedi 2002 Completed [facility] Dosage 00:00:00 [facility] DTAP 2002 Completed [facility] 00:00:00 [facility] HIB 4 Dose Schedule 2002 Completed [facility] 00:00:00 [facility] Hep B, Adol or Pedi 2002 Completed [facility] Dosage 00:00:00 [facility] DTAP 2002 Completed [facility] 00:00:00 [facility] HIB 4 Dose Schedule 2002 Completed [facility] 00:00:00 [facility] Pneumococcal 7 2002 Completed [facility] of Conjugate, PCV7 00:00:00 [facility] (Pre[facility]ar7[facility] Polio (IPV/OPV) 2002 Completed [facility] 00:00:00 [facility] DTAP 2002 Completed [facility] 00:00:00 [facility] HIB 4 Dose Schedule 2002 Completed [facility] 00:00:00 [facility] Pneumococcal 7 2002 Completed [facility] Conjugate, PCV7 00:00:00 [facility] (Prevnar7) [facility] Polio (IPV/OPV) 2002 Completed [facility] 00:00:00 [facility] DTAP 2002 Completed [facility] 00:00:00 [facility] HIB 4 Dose Schedule 2002 Completed [facility] 00:00:00 [facility] Pneumococcal 7 2002 Completed [facility] Conjugate, PCV7 00:00:00 [facility] (Prevnar7) [facility] Polio (IPV/OPV) 2002 Completed [facility] 00:00:00 [facility] DTAP 2002 Completed [facility] 00:00:00 [facility] HIB 4 Dose Schedule 2002 Completed [facility] 00:00:00 [facility] Pneumococcal 7 2002 Completed [facility] Conjugate, PCV7 00:00:00 [facility] (Prevnar7) [facility] Polio (IPV/OPV) 2002 Completed [facility] 00:00:00 [facility] DTAP 2002 Completed [facility] 00:00:00 [facility] DTAP 2002 Completed [facility] 00:00:00 [facility] HIB 4 Dose Schedule 2002 Completed [facility] 00:00:00 [facility] Pneumococcal 7 2002 Completed [facility] Conjugate, PCV7 00:00:00 [facility] (Prevnar7) [facility] Polio (IPV/OPV) 2002 Completed [facility] 00:00:00 [facility] HIB 4 Dose Schedule 2002 Completed [facility] 00:00:00 [facility] DTAP 2002 Completed [facility] 00:00:00 [facility] HIB 4 Dose Schedule 2002 Completed [facility] 00:00:00 [facility] Pneumococcal 7 2002 Completed [facility] Conjugate, PCV7 00:00:00 [facility] (Prevnar7) [facility] Polio (IPV/OPV) 2002 Completed [facility] 00:00:00 [facility] DTAP 2002 Completed [facility] 00:00:00 [facility] HIB 4 Dose Schedule 2002 Completed [facility] 00:00:00 [facility] Pneumococcal 7 2002 Completed [facility] Conjugate, PCV7 00:00:00 [facility] (Prevnar7) [facility] Polio (IPV/OPV) 2002 Completed [facility] 00:00:00 [facility] Pneumococcal 7 2002 Completed [facility] Conjugate, PCV7 00:00:00 [facility] (Prevnar7) [facility] DTAP 2002 Completed [facility] 00:00:00 [facility] HIB 4 Dose Schedule 2002 Completed [facility] 00:00:00 [facility] Pneumococcal 7 2002 Completed [facility] Conjugate, PCV7 00:00:00 [facility] (Prevnar7) [facility] Polio (IPV/OPV) 2002 Completed [facility] 00:00:00 [facility] Polio (IPV/OPV) 2002 Completed [facility] 00:00:00 [facility] DTAP 2002 Completed [facility] 00:00:00 [facility] HIB 4 Dose Schedule 2002 Completed [facility] 00:00:00 [facility] Pneumococcal 7 2002 Completed [facility] Conjugate, PCV7 00:00:00 [facility] (Prevnar7) [facility] Polio (IPV/OPV) 2002 Completed [facility] 00:00:00 [facility] DTAP 2002 Completed [facility] 00:00:00 [facility] HIB 4 Dose Schedule 2002 Completed [facility] 00:00:00 [facility] Pneumococcal 7 2002 Completed [facility] Conjugate, PCV7 00:00:00 [facility] (Prevnar7) [facility] Polio (IPV/OPV) 2002 Completed [facility] 00:00:00 [facility] DTAP 2002 Completed [facility] 00:00:00 [facility] HIB 4 Dose Schedule 2002 Completed [facility] 00:00:00 [facility] Pneumococcal 7 2002 Completed [facility] Conjugate, PCV7 00:00:00 [facility] (Prevnar7) [facility] Polio (IPV/OPV) 2002 Completed [facility] 00:00:00 [facility] DTAP 2002 Completed [facility] 00:00:00 [facility] HIB 4 Dose Schedule 2002 Completed [facility] 00:00:00 [facility] Pneumococcal 7 2002 Completed [facility] Conjugate, PCV7 00:00:00 [facility] (Prevnar7) [facility] Polio (IPV/OPV) 2002 Completed [facility] 00:00:00 [facility] DTAP 2002 Completed [facility] 00:00:00 [facility] HIB 4 Dose Schedule 2002 Completed [facility] 00:00:00 [facility] Pneumococcal 7 2002 Completed [facility] Conjugate, PCV7 00:00:00 [facility] (Prevnar7) [facility] Polio (IPV/OPV) 2002 Completed [facility] 00:00:00 [facility] DTAP 2002 Completed [facility] 00:00:00 [facility] DTAP 2002 Completed [facility] 00:00:00 [facility] HIB 4 Dose Schedule 2002 Completed [facility] 00:00:00 [facility] HIB 4 Dose Schedule 2002 Completed [facility] 00:00:00 [facility] Pneumococcal 7 2002 Completed [facility] Conjugate, PCV7 00:00:00 [facility] (Prevnar7) [facility] Polio (IPV/OPV) 2002 Completed [facility] 00:00:00 [facility] DTAP 2002 Completed [facility] 00:00:00 [facility] HIB 4 Dose Schedule 2002 Completed [facility] 00:00:00 [facility] Pneumococcal 7 2002 Completed [facility] Conjugate, PCV7 00:00:00 [facility] (Prevnar7) [facility] Polio (IPV/OPV) 2002 Completed [facility] 00:00:00 [facility] Pneumococcal 7 2002 Completed [facility] Conjugate, PCV7 00:00:00 [facility] (Prevnar7) [facility] Polio (IPV/OPV) 2002 Completed [facility] 00:00:00 [facility] DTAP 2002 Completed [facility] 00:00:00 [facility] HIB 4 Dose Schedule 2002 Completed [facility] 00:00:00 [facility] Pneumococcal 7 2002 Completed [facility] Conjugate, PCV7 00:00:00 [facility] (Prevnar7) [facility] Polio (IPV/OPV) 2002 Completed [facility] 00:00:00 [facility] DTAP 2002 Completed [facility] 00:00:00 [facility] HIB 4 Dose Schedule 2002 Completed [facility] 00:00:00 [facility] Pneumococcal 7 2002 Completed [facility] Conjugate, PCV7 00:00:00 [facility] (Prevnar7) Branch Polio (IPV/OPV) 2002 Completed [facility] 00:00:00 [facility] DTAP 2002 Completed [facility] 00:00:00 [facility] HIB 4 Dose Schedule 2002 Completed [facility] 00:00:00 [facility] Pneumococcal 7 2002 Completed [facility] Conjugate, PCV7 00:00:00 [facility] (Prevnar7) [facility] Polio (IPV/OPV) 2002 Completed [facility] 00:00:00 [facility] DTAP 2002 Completed [facility] 00:00:00 [facility] HIB 4 Dose Schedule 2002 Completed [facility] 00:00:00 [facility] Pneumococcal 7 2002 Completed [facility] Conjugate, PCV7 00:00:00 [facility] (Prevnar7) [facility] Polio (IPV/OPV) 2002 Completed [facility] 00:00:00 [facility] DTAP 2002 Completed [facility] 00:00:00 [facility] DTAP 2002 Completed [facility] 00:00:00 [facility] HIB 4 Dose Schedule 2002 Completed [facility] 00:00:00 [facility] Pneumococcal 7 2002 Completed [facility] Conjugate, PCV7 00:00:00 [facility] (Prevnar7) [facility] Polio (IPV/OPV) 2002 Completed [facility] 00:00:00 [facility] HIB 4 Dose Schedule 2002 Completed [facility] 00:00:00 [facility] DTAP 2002 Completed [facility] 00:00:00 [facility] HIB 4 Dose Schedule 2002 Completed [facility] 00:00:00 [facility] Pneumococcal 7 2002 Completed [facility] Conjugate, PCV7 00:00:00 [facility] (Prevnar7) [place] Polio (IPV/OPV) 2002 Completed [facility] 00:00:00 [facility] DTAP 2002 Completed [facility] 00:00:00 [facility] HIB 4 Dose Schedule 2002 Completed [facility] 00:00:00 [facility] Pneumococcal 7 2002 Completed [facility] Conjugate, PCV7 00:00:00 [facility] (Prevnar7) [facility] Polio (IPV/OPV) 2002 Completed [facility] 00:00:00 [facility] Pneumococcal 7 2002 Completed [facility] Conjugate, PCV7 00:00:00 [facility] (Prevnar7) [facility] DTAP 2002 Completed [facility] 00:00:00 [facility] HIB 4 Dose Schedule 2002 Completed [facility] 00:00:00 [facility] Pneumococcal 7 2002 Completed [facility] Conjugate, PCV7 00:00:00 [facility] (Prevnar7) [facility] Polio (IPV/OPV) 2002 Completed [facility] 00:00:00 [facility] Polio (IPV/OPV) 2002 Completed [facility] 00:00:00 [facility] DTAP 2002 Completed [facility] 00:00:00 [facility] HIB 4 Dose Schedule 2002 Completed [facility] 00:00:00 [facility] Pneumococcal 7 2002 Completed [facility] Conjugate, PCV7 00:00:00 [facility] (Prevnar7) [facility] Polio (IPV/OPV) 2002 Completed [facility] 00:00:00 [facility] DTAP 2002 Completed [facility] 00:00:00 [facility] HIB 4 Dose Schedule 2002 Completed [facility] 00:00:00 [facility] Pneumococcal 7 2002 Completed [facility] Conjugate, PCV7 00:00:00 [facility] (Prevnar7) [facility] Polio (IPV/OPV) 2002 Completed [facility] 00:00:00 [facility] DTAP 2002 Completed [facility] 00:00:00 [facility] HIB 4 Dose Schedule 2002 Completed [facility] 00:00:00 [facility] Pneumococcal 7 2002 Completed [facility] Conjugate, PCV7 00:00:00 [facility] (Prevnar7) [facility] Polio (IPV/OPV) 2002 Completed [facility] 00:00:00 [facility] DTAP 2002 Completed [facility] 00:00:00 [facility] HIB 4 Dose Schedule 2002 Completed [facility] 00:00:00 [facility] Pneumococcal 7 2002 Completed [facility] Conjugate, PCV7 00:00:00 [facility] (Prevnar7) [facility] Polio (IPV/OPV) 2002 Completed [facility] 00:00:00 [facility] DTAP 2002 Completed [facility] 00:00:00 [facility] HIB 4 Dose Schedule 2002 Completed [facility] 00:00:00 [facility] Pneumococcal 7 2002 Completed [facility] of Conjugate, PCV7 00:00:00 [facility] (Prevnar7) [facility] Polio (IPV/OPV) 2002 Completed [facility] 00:00:00 [facility] DTAP 2002 Completed [facility] 00:00:00 [facility] HIB 4 Dose Schedule 2002 Completed [facility] 00:00:00 [facility] Pneumococcal 7 2002 Completed [facility] Conjugate, PCV7 00:00:00 [facility] (Prevnar7) [facility] Polio (IPV/OPV) 2002 Completed [facility] 00:00:00 [facility] DTAP 2002 Completed [facility] 00:00:00 [facility] HIB 4 Dose Schedule 2002 Completed [facility] 00:00:00 [facility] Pneumococcal 7 2002 Completed [facility] Conjugate, PCV7 00:00:00 [facility] (Prevnar7) [facility] Polio (IPV/OPV) 2002 Completed [facility] 00:00:00 [facility] DTAP 2002 Completed [facility] 00:00:00 [facility] HIB 4 Dose Schedule 2002 Completed [facility] 00:00:00 [facility] Pneumococcal 7 2002 Completed [facility] Conjugate, PCV7 00:00:00 [facility] (Prevnar7) [facility] Polio (IPV/OPV) 2002 Completed [facility] 00:00:00 [facility] DTAP 2002 Completed [facility] 00:00:00 [facility] DTAP 2002 Completed [facility] 00:00:00 [facility] HIB 4 Dose Schedule 2002 Completed [facility] 00:00:00 [facility] HIB 4 Dose Schedule 2002 Completed [facility] 00:00:00 [facility] Pneumococcal 7 2002 Completed [facility] Conjugate, PCV7 00:00:00 [place] [facility] (Prevnar7) [facility] Polio (IPV/OPV) 2002 Completed [facility] 00:00:00 [facility] DTAP 2002 Completed [facility] 00:00:00 [facility] HIB 4 Dose Schedule 2002 Completed [facility] 00:00:00 [facility] Pneumococcal 7 2002 Completed [facility] Conjugate, PCV7 00:00:00 [place] [facility] (Prevnar7) [facility] Polio (IPV/OPV) 2002 Completed [facility] 00:00:00 [facility] Pneumococcal 7 2002 Completed [facility] Conjugate, PCV7 00:00:00 [place] [facility] (Prevnar7) [facility] DTAP 2002 Completed [facility] 00:00:00 [facility] HIB 4 Dose Schedule 2002 Completed [facility] 00:00:00 [facility] Pneumococcal 7 2002 Completed [facility] Conjugate, PCV7 00:00:00 [facility] (Prevnar7) [place] Polio (IPV/OPV) 2002 Completed [facility] 00:00:00 [facility] Polio (IPV/OPV) 2002 Completed [facility] 00:00:00 [facility] DTAP 2002 Completed [facility] 00:00:00 [facility] HIB 4 Dose Schedule 2002 Completed [facility] 00:00:00 [facility] Hep B, Adol or Pedi 2002 Completed [facility] Dosage 00:00:00 [facility] Pneumococcal 7 2002 Completed [facility] Conjugate, PCV7 00:00:00 [facility] (Prevnar7) [place] Polio (IPV/OPV) 2002 Completed [facility] 00:00:00 [facility] DTAP 2002 Completed [facility] 00:00:00 [facility] HIB 4 Dose Schedule 2002 Completed [facility] 00:00:00 [facility] Hep B, Adol or Pedi 2002 Completed [facility] Dosage 00:00:00 [facility] Pneumococcal 7 2002 Completed [facility] Conjugate, PCV7 00:00:00 [facility] (Prevnar7) [place] Polio (IPV/OPV) 2002 Completed [facility] 00:00:00 [facility] DTAP 2002 Completed [facility] 00:00:00 [facility] DTAP 2002 Completed [facility] 00:00:00 [facility] HIB 4 Dose Schedule 2002 Completed [facility] 00:00:00 [facility] HIB 4 Dose Schedule 2002 Completed [facility] 00:00:00 [facility] Hep B, Adol or Pedi 2002 Completed [facility] Dosage 00:00:00 [facility] Pneumococcal 7 2002 Completed [facility] Conjugate, PCV7 00:00:00 [facility] [place] [facility] (Prevnar7) [facility] Polio (IPV/OPV) 2002 Completed [facility] 00:00:00 [facility] DTAP 2002 Completed [facility] 00:00:00 [facility] Hep B, Adol or Pedi 2002 Completed [facility] Dosage 00:00:00 [facility] HIB 4 Dose Schedule 2002 Completed [facility] 00:00:00 [facility] Hep B, Adol or Pedi 2002 Completed [facility] Dosage 00:00:00 [facility] Pneumococcal 7 2002 Completed [facility] Conjugate, PCV7 00:00:00 [facility] (Prevnar7) [facility] Polio (IPV/OPV) 2002 Completed [facility] 00:00:00 [facility] Pneumococcal 7 2002 Completed [facility] Conjugate, PCV7 00:00:00 [facility] [place] [facility] (Prevnar7) [facility] DTAP 2002 Completed [facility] 00:00:00 [facility] HIB 4 Dose Schedule 2002 Completed [facility] 00:00:00 [facility] Hep B, Adol or Pedi 2002 Completed [facility] Dosage 00:00:00 [facility] Pneumococcal 7 2002 Completed [facility] Conjugate, PCV7 00:00:00 [facility] (Prevnar7) [facility] Polio (IPV/OPV) 2002 Completed [facility] 00:00:00 [facility] DTAP 2002 Completed [facility] 00:00:00 [facility] HIB 4 Dose Schedule 2002 Completed [facility] 00:00:00 [facility] Hep B, Adol or Pedi 2002 Completed [facility] Dosage 00:00:00 [facility] Pneumococcal 7 2002 Completed [facility] Conjugate, PCV7 00:00:00 [facility] (Prevnar7) [facility] Polio (IPV/OPV) 2002 Completed [facility] 00:00:00 [facility] DTAP 2002 Completed [facility] 00:00:00 [facility] HIB 4 Dose Schedule 2002 Completed [facility] 00:00:00 [facility] Hep B, Adol or Pedi 2002 Completed [facility] Dosage 00:00:00 [facility] Pneumococcal 7 2002 Completed [facility] Conjugate, PCV7 00:00:00 [facility] (Prevnar7) [facility] Polio (IPV/OPV) 2002 Completed [facility] 00:00:00 [facility] DTAP 2002 Completed [facility] 00:00:00 [facility] HIB 4 Dose Schedule 2002 Completed [facility] 00:00:00 [facility] Hep B, Adol or Pedi 2002 Completed [facility] Dosage 00:00:00 [facility] Pneumococcal 7 2002 Completed [facility] Conjugate, PCV7 00:00:00 [facility] (Prevnar7) [facility] Polio (IPV/OPV) 2002 Completed [facility] 00:00:00 [facility] Polio (IPV/OPV) 2002 Completed [facility] 00:00:00 [facility] DTAP 2002 Completed [facility] 00:00:00 [facility] HIB 4 Dose Schedule 2002 Completed [facility] 00:00:00 [facility] Hep B, Adol or Pedi 2002 Completed [facility] Dosage 00:00:00 [facility] Pneumococcal 7 2002 Completed [facility] Conjugate, PCV7 00:00:00 [facility] [place] [facility] (Prevnar7) [facility] Polio (IPV/OPV) 2002 Completed [facility] 00:00:00 [facility] DTAP 2002 Completed [facility] 00:00:00 [facility] HIB 4 Dose Schedule 2002 Completed [facility] 00:00:00 [facility] Hep B, Adol or Pedi 2002 Completed [facility] Dosage 00:00:00 [facility] Pneumococcal 7 2002 Completed [facility] Conjugate, PCV7 00:00:00 [facility] (Prevnar7) [facility] Polio (IPV/OPV) 2002 Completed [facility] 00:00:00 [facility] DTAP 2002 Completed [facility] 00:00:00 [facility] HIB 4 Dose Schedule 2002 Completed [facility] 00:00:00 [facility] Hep B, Adol or Pedi 2002 Completed [facility] Dosage 00:00:00 [facility] Pneumococcal 7 2002 Completed [facility] Conjugate, PCV7 00:00:00 [facility] [place] [facility] (Prevnar7) [facility] DTAP 2002 Completed [facility] 00:00:00 [facility] Polio (IPV/OPV) 2002 Completed [facility] 00:00:00 [facility] HIB 4 Dose Schedule 2002 Completed [facility] 00:00:00 [facility] DTAP 2002 Completed [facility] 00:00:00 [facility] HIB 4 Dose Schedule 2002 Completed [facility] 00:00:00 [facility] Hep B, Adol or Pedi 2002 Completed [facility] Dosage 00:00:00 [facility] Pneumococcal 7 2002 Completed [facility] Conjugate, PCV7 00:00:00 [facility] (Prevnar7) [facility] Hep B, Adol or Pedi 2002 Completed [facility] Dosage 00:00:00 [facility] Polio (IPV/OPV) 2002 Completed [facility] 00:00:00 [facility] DTAP 2002 Completed [facility] 00:00:00 [facility] HIB 4 Dose Schedule 2002 Completed [facility] 00:00:00 [facility] Hep B, Adol or Pedi 2002 Completed [facility] Dosage 00:00:00 [facility] Pneumococcal 7 2002 Completed [facility] Conjugate, PCV7 00:00:00 [facility] (Prevnar7) [facility] Pneumococcal 7 2002 Completed [facility] Conjugate, PCV7 00:00:00 [facility] (Prevnar7) [facility] Polio (IPV/OPV) 2002 Completed [facility] 00:00:00 [facility] DTAP 2002 Completed [facility] 00:00:00 [facility] HIB 4 Dose Schedule 2002 Completed [facility] 00:00:00 [facility] Hep B, Adol or Pedi 2002 Completed [facility] Dosage 00:00:00 [facility] Pneumococcal 7 2002 Completed [facility] Conjugate, PCV7 00:00:00 [facility] [place] [facility] (Prevnar7) [facility] Polio (IPV/OPV) 2002 Completed [facility] 00:00:00 [facility] DTAP 2002 Completed [facility] 00:00:00 [facility] HIB 4 Dose Schedule 2002 Completed [facility] 00:00:00 [facility] Hep B, Adol or Pedi 2002 Completed [facility] Dosage 00:00:00 [facility] Pneumococcal 7 2002 Completed [facility] Conjugate, PCV7 00:00:00 [facility] [place] [facility] (Prevnar7) [place] Polio (IPV/OPV) 2002 Completed [facility] 00:00:00 [facility] Polio (IPV/OPV) 2002 Completed [facility] 00:00:00 [facility] DTAP 2002 Completed [facility] 00:00:00 [facility] HIB 4 Dose Schedule 2002 Completed [facility] 00:00:00 [facility] Hep B, Adol or Pedi 2002 Completed [facility] Dosage 00:00:00 [facility] Pneumococcal 7 2002 Completed [facility] Conjugate, PCV7 00:00:00 [facility] (Prevnar7) [facility] Polio (IPV/OPV) 2002 Completed [facility] 00:00:00 [facility] DTAP 2002 Completed [facility] 00:00:00 [facility] HIB 4 Dose Schedule 2002 Completed [facility] 00:00:00 [facility] Hep B, Adol or Pedi 2002 Completed [facility] Dosage 00:00:00 [facility] Pneumococcal 7 2002 Completed [facility] Conjugate, PCV7 00:00:00 [facility] [place] [facility] (Prevnar7) [facility] DTAP 2002 Completed [facility] 00:00:00 [facility] HIB 4 Dose Schedule 2002 Completed [facility] 00:00:00 [facility] Polio (IPV/OPV) 2002 Completed [facility] 00:00:00 [facility] DTAP 2002 Completed [facility] 00:00:00 [facility] HIB 4 Dose Schedule 2002 Completed [facility] 00:00:00 [facility] Hep B, Adol or Pedi 2002 Completed [facility] Dosage 00:00:00 [facility] Pneumococcal 7 2002 Completed [facility] Conjugate, PCV7 00:00:00 [facility] [place] [facility] (Prevnar7) [facility] Hep B, Adol or Pedi 2002 Completed [facility] Dosage 00:00:00 [facility] Polio (IPV/OPV) 2002 Completed [facility] 00:00:00 [facility] DTAP 2002 Completed [facility] 00:00:00 [facility] HIB 4 Dose Schedule 2002 Completed [facility] 00:00:00 [facility] Hep B, Adol or Pedi 2002 Completed [facility] Dosage 00:00:00 [facility] Pneumococcal 7 2002 Completed [facility] Conjugate, PCV7 00:00:00 [facility] [place] [facility] (Prevnar7) [facility] Polio (IPV/OPV) 2002 Completed [facility] 00:00:00 [facility] Pneumococcal 7 2002 Completed [facility] Conjugate, PCV7 00:00:00 [facility] [place] [facility] (Prevnar7) [facility] DTAP 2002 Completed [facility] 00:00:00 [facility] HIB 4 Dose Schedule 2002 Completed [facility] 00:00:00 [facility] Hep B, Adol or Pedi 2002 Completed [facility] Dosage 00:00:00 [facility] Pneumococcal 7 2002 Completed [facility] Conjugate, PCV7 00:00:00 [facility] [place] [facility] (Prevnar7) [facility] Polio (IPV/OPV) 2002 Completed [facility] 00:00:00 [facility] DTAP 2002 Completed [facility] 00:00:00 [facility] HIB 4 Dose Schedule 2002 Completed [facility] 00:00:00 [facility] Hep B, Adol or Pedi 2002 Completed [facility] Dosage 00:00:00 [facility] Pneumococcal 7 2002 Completed [facility] Conjugate, PCV7 00:00:00 [facility] (Prevnar7) [facility] Polio (IPV/OPV) 2002 Completed [facility] 00:00:00 [facility] DTAP 2002 Completed [facility] 00:00:00 [facility] HIB 4 Dose Schedule 2002 Completed [facility] 00:00:00 [facility] Hep B, Adol or Pedi 2002 Completed [facility] Dosage 00:00:00 [facility] Pneumococcal 7 2002 Completed [facility] Conjugate, PCV7 00:00:00 [facility] (Prevnar7) Branch Polio (IPV/OPV) 2002 Completed [facility] 00:00:00 [facility] DTAP 2002 Completed [facility] 00:00:00 [facility] HIB 4 Dose Schedule 2002 Completed [facility] 00:00:00 [facility] Hep B, Adol or Pedi 2002 Completed [facility] Dosage 00:00:00 [facility] Pneumococcal 7 2002 Completed [facility] Conjugate, PCV7 00:00:00 [facility] (Prevnar7) Branch Polio (IPV/OPV) 2002 Completed [facility] 00:00:00 [facility] Polio (IPV/OPV) 2002 Completed [facility] 00:00:00 [facility] DTAP 2002 Completed [facility] 00:00:00 [facility] HIB 4 Dose Schedule 2002 Completed [facility] 00:00:00 [facility] Hep B, Adol or Pedi 2002 Completed [facility] Dosage 00:00:00 [facility] Pneumococcal 7 2002 Completed [facility] Conjugate, PCV7 00:00:00 [facility] [place] [facility] (Prevnar7) [facility] Polio (IPV/OPV) 2002 Completed [facility] 00:00:00 [facility] DTAP 2002 Completed [facility] 00:00:00 [facility] HIB 4 Dose Schedule 2002 Completed [facility] 00:00:00 [facility] Hep B, Adol or Pedi 2002 Completed [facility] Dosage 00:00:00 [facility] Pneumococcal 7 2002 Completed [facility] Conjugate, PCV7 00:00:00 [facility] (Prevnar7) [place] Polio (IPV/OPV) 2002 Completed [facility] 00:00:00 [facility] DTAP 2002 Completed [facility] 00:00:00 [facility] HIB 4 Dose Schedule 2002 Completed [facility] 00:00:00 [facility] Hep B, Adol or Pedi 2002 Completed [facility] Dosage 00:00:00 [facility] Pneumococcal 7 2002 Completed [facility] Conjugate, PCV7 00:00:00 [facility] (Prevnar7) [place] Polio (IPV/OPV) 2002 Completed [facility] 00:00:00 [facility] DTAP 2002 Completed [facility] 00:00:00 [facility] HIB 4 Dose Schedule 2002 Completed [facility] 00:00:00 [facility] Hep B, Adol or Pedi 2002 Completed [facility] Dosage 00:00:00 [facility] Pneumococcal 7 2002 Completed [facility] Conjugate, PCV7 00:00:00 [facility] (Prevnar7) [place] Polio (IPV/OPV) 2002 Completed [facility] 00:00:00 [facility] DTAP 2002 Completed [facility] 00:00:00 [facility] HIB 4 Dose Schedule 2002 Completed [facility] 00:00:00 [facility] Hep B, Adol or Pedi 2002 Completed [facility] Dosage 00:00:00 [facility] Pneumococcal 7 2002 Completed [facility] Conjugate, PCV7 00:00:00 [facility] (Prevnar7) Branch Polio (IPV/OPV) 2002 Completed [facility] 00:00:00 [facility] DTAP 2002 Completed [facility] 00:00:00 [facility] HIB 4 Dose Schedule 2002 Completed [facility] 00:00:00 [facility] Hep B, Adol or Pedi 2002 Completed [facility] Dosage 00:00:00 [facility] DTAP 2002 Completed [facility] 00:00:00 [facility] Pneumococcal 7 2002 Completed [facility] Conjugate, PCV7 00:00:00 [facility] [place] [facility] (Prevnar7) [facility] HIB 4 Dose Schedule 2002 Completed [facility] 00:00:00 [facility] Polio (IPV/OPV) 2002 Completed [facility] 00:00:00 [facility] DTAP 2002 Completed [facility] 00:00:00 [facility] HIB 4 Dose Schedule 2002 Completed [facility] 00:00:00 [facility] Hep B, Adol or Pedi 2002 Completed [facility] Dosage 00:00:00 [facility] Pneumococcal 7 2002 Completed [facility] Conjugate, PCV7 00:00:00 [facility] [place] [facility] (Prevnar7) [facility] Hep B, Adol or Pedi 2002 Completed [facility] Dosage 00:00:00 [facility] Polio (IPV/OPV) 2002 Completed [facility] 00:00:00 [facility] DTAP 2002 Completed [facility] 00:00:00 [facility] HIB 4 Dose Schedule 2002 Completed [facility] 00:00:00 [facility] Hep B, Adol or Pedi 2002 Completed [facility] Dosage 00:00:00 [facility] Pneumococcal 7 2002 Completed [facility] Conjugate, PCV7 00:00:00 [facility] [place] [facility] (Prevnar7) [facility] Pneumococcal 7 2002 Completed [facility] Conjugate, PCV7 00:00:00 [facility] [place] [facility] (Prevnar7) [facility] Polio (IPV/OPV) 2002 Completed [facility] 00:00:00 [facility] DTAP 2002 Completed [facility] 00:00:00 [facility] HIB 4 Dose Schedule 2002 Completed [facility] 00:00:00 [facility] Hep B, Adol or Pedi 2002 Completed [facility] Dosage 00:00:00 [facility] Pneumococcal 7 2002 Completed [facility] Conjugate, PCV7 00:00:00 [facility] [place] [facility] (Prevnar7) [facility] Polio (IPV/OPV) 2002 Completed [facility] 00:00:00 [facility] DTAP 2002 Completed [facility] 00:00:00 [facility] HIB 4 Dose Schedule 2002 Completed [facility] 00:00:00 [facility] Hep B, Adol or Pedi 2002 Completed [facility] Dosage 00:00:00 [facility] Pneumococcal 7 2002 Completed [facility] Conjugate, PCV7 00:00:00 [facility] [place] [facility] (Prevnar7) [facility] Polio (IPV/OPV) 2002 Completed [facility] 00:00:00 [facility] DTAP 2002 Completed [facility] 00:00:00 [facility] HIB 4 Dose Schedule 2002 Completed [facility] 00:00:00 [facility] Hep B, Adol or Pedi 2002 Completed [facility] Dosage 00:00:00 [facility] Pneumococcal 7 2002 Completed [facility] Conjugate, PCV7 00:00:00 [facility] [place] [facility] (Prevnar7) [facility] Polio (IPV/OPV) 2002 Completed [facility] 00:00:00 [facility] Polio (IPV/OPV) 2002 Completed [facility] 00:00:00 [facility] Hep B, Adol or Pedi 2002 Completed [facility] Dosage 00:00:00 [facility] Hep B, Adol or Pedi 2002 Completed [facility] of Dosage 00:00:00 [facility] Hep B, Adol or Pedi 2002 Completed [facility] Dosage 00:00:00 [facility] Hep B, Adol or Pedi 2002 Completed [facility] Dosage 00:00:00 [facility] Hep B, Adol or Pedi 2002 Completed [facility] Dosage 00:00:00 [facility] Hep B, Adol or Pedi 2002 Completed [facility] Dosage 00:00:00 [facility] Hep B, Adol or Pedi 2002 Completed [facility] Dosage 00:00:00 [facility] Hep B, Adol or Pedi 2002 Completed [facility] Dosage 00:00:00 [facility] Hep B, Adol or Pedi 2002 Completed [facility] Dosage 00:00:00 [facility] Hep B, Adol or Pedi 2002 Completed [facility] Dosage 00:00:00 [facility] Hep B, Adol or Pedi 2002 Completed [facility] Dosage 00:00:00 [facility] Hep B, Adol or Pedi 2002 Completed [facility] Dosage 00:00:00 [facility] Hep B, Adol or Pedi 2002 Completed [facility] Dosage 00:00:00 [facility] Hep B, Adol or Pedi 2002 Completed [facility] Dosage 00:00:00 [facility] Hep B, Adol or Pedi 2002 Completed [facility] Dosage 00:00:00 [facility] Hep B, Adol or Pedi 2002 Completed [facility] Dosage 00:00:00 [facility] Hep B, Adol or Pedi 2002 Completed [facility] Dosage 00:00:00 [facility] Hep B, Adol or Pedi 2002 Completed [facility] Dosage 00:00:00 [facility] Hep B, Adol or Pedi 2002 Completed [facility] Dosage 00:00:00 [facility] Hep B, Adol or Pedi 2002 Completed [facility] Dosage 00:00:00 [facility] Hep B, Adol or Pedi 2002 Completed [facility] of Dosage 00:00:00 [facility] Hep B, Adol or Pedi 2002 Completed [facility] Dosage 00:00:00 [facility] Hep B, Adol or Pedi 2002 Completed [facility] Dosage 00:00:00 [facility] Hep B, Adol or Pedi 2002 Completed [facility] Dosage 00:00:00 [facility] Hep B, Adol or Pedi 2002 Completed [facility] Dosage 00:00:00 [facility] Hep B, Adol or Pedi 2002 Completed [facility] Dosage 00:00:00 [facility] Hep B, Adol or Pedi 2002 Completed [facility] Dosage 00:00:00 [facility] Hep B, Adol or Pedi 2002 Completed [facility] Dosage 00:00:00 [facility] Hep B, Adol or Pedi 2002 Completed [facility] Dosage 00:00:00 [facility] Hep B, Adol or Pedi 2002 Completed [facility] Dosage 00:00:00 [facility] Hep B, Adol or Pedi 2002 Completed [facility] Dosage 00:00:00 [facility] Hep B, Adol or Pedi 2002 Completed [facility] Dosage 00:00:00 [facility] Hep B, Adol or Pedi 2002 Completed [facility] Dosage 00:00:00 [facility] Hep B, Adol or Pedi 2002 Completed [facility] Dosage 00:00:00 [facility] Hep B, Adol or Pedi 2002 Completed [facility] Dosage 00:00:00 [facility] Hep B, Adol or Pedi 2002 Completed [facility] Dosage 00:00:00 [facility] Hep B, Adol or Pedi 2002 Completed [facility] Dosage 00:00:00 [facility] Hep B, Adol or Pedi 2002 Completed [facility] Dosage 00:00:00 [facility] Vital Signs Vital Name Observation Time Observation Value Comments Source Systolic blood 2022-11-01 18:55:00 122 mm[Hg] [facility] pressure [facility] Diastolic blood 2022-11-01 18:55:00 79 mm[Hg] [facility] of pressure [facility] Heart rate 2022-11-01 18:55:00 82 /min [facility] Body temperature 2022-11-01 18:55:00 36.67 [facility] Respiratory rate 2022-11-01 18:55:00 18 /min [facility] Body height 2022-11-01 18:55:00 162.6 cm [facility] Body weight 2022-11-01 18:55:00 54.159 kg [facility] BMI 2022-11-01 18:55:00 20.49 kg/m2 [facility] Oxygen saturation in 2022-11-01 18:55:00 97 /min [facility] of Arterial blood by [facility] Pulse oximetry Branch Systolic blood 2022-06-14 17:28:00 120 mm[Hg] [facility] pressure [facility] [place] Diastolic blood 2022-06-14 17:28:00 57 mm[Hg] [facility] of pressure [facility] Heart rate 2022-06-14 17:28:00 86 /min [facility] [place] Body temperature 2022-06-14 17:28:00 36.94 [facility] [place] Respiratory rate 2022-06-14 17:28:00 18 /min [facility] Body height 2022-06-14 17:28:00 162.6 cm [facility] Body weight 2022-06-14 17:28:00 53.071 kg [facility] [place] BMI 2022-06-14 17:28:00 20.08 kg/m2 [facility] Systolic blood 2022-05-31 13:34:00 115 mm[Hg] [facility] Diastolic blood 2022-05-31 13:34:00 72 mm[Hg] [facility] Heart rate 2022-05-31 13:34:00 93 /min [facility] Body temperature 2022-05-31 13:34:00 37.67 Faiza [facility] Body height 2022-05-31 13:34:00 162.6 cm [facility] Body weight 2022-05-31 13:34:00 52.617 kg [facility] BMI 2022-05-31 13:34:00 19.91 kg/m2 [facility] Oxygen saturation in 2022-05-31 13:34:00 99 /min University of Arterial blood by [facility] Pulse oximetry Branch Systolic blood 2022-03-28 17:05:00 113 mm[Hg] [facility] Diastolic blood 2022-03-28 17:05:00 73 mm[Hg] Unive [facility]ity [facility] Heart rate 2022-03-28 17:05:00 93 /min [facility] Body temperature 2022-03-28 17:05:00 36.83 Faiza [facility] Body height 2022-03-28 17:05:00 162.6 cm [facility] Body weight 2022-03-28 17:05:00 52.617 kg [facility] BMI 2022-03-28 17:05:00 19.91 kg/m2 [facility] Oxygen saturation in 2022-03-28 17:05:00 100 /min University of Arterial blood by [facility] Pulse oximetry Branch Systolic blood 2020-07-05 20:03:00 110 mm[Hg] [facility] Diastolic blood 2020-07-05 20:03:00 62 mm[Hg] [facility] Heart rate 2020-07-05 20:03:00 84 /min [facility] Body temperature 2020-07-05 20:03:00 36.78 Faiza [facility] Respiratory rate 2020-07-05 20:03:00 16 /min [facility] Body height 2020-07-05 20:03:00 162.6 cm [facility] Body weight 2020-07-05 20:03:00 48.11 kg [facility] BMI 2020-07-05 20:03:00 18.21 kg/m2 [facility] Systolic blood 2020-06-07 21:41:00 106 mm[Hg] [facility] Diastolic blood 2020-06-07 21:41:00 67 mm[Hg] [facility] Heart rate 2020-06-07 21:41:00 77 /min [facility] Body temperature 2020-06-07 21:41:00 36.78 Faiza [facility] Respiratory rate 2020-06-07 21:41:00 16 /min [facility] Body height 2020-06-07 21:41:00 162.6 cm [facility] Body weight 2020-06-07 21:41:00 49.669 kg [facility] BMI 2020-06-07 21:41:00 18.80 kg/m2 [facility] Systolic blood 2020-05-02 21:50:00 119 mm[Hg] [facility] Diastolic blood 2020-05-02 21:50:00 73 mm[Hg] [facility]ive [facility]ity [facility] Heart rate 2020-05-02 21:50:00 64 /min [facility] Body temperature 2020-05-02 21:50:00 36.89 Faiza [facility] Respiratory rate 2020-05-02 21:50:00 16 /min [facility] Body height 2020-05-02 21:50:00 160 cm [facility] Body weight 2020-05-02 21:50:00 59.109 kg [facility] BMI 2020-05-02 21:50:00 23.08 kg/m2 [facility] Systolic blood 2020-03-23 19:07:00 117 mm[Hg] [facility] Diastolic blood 2020-03-23 19:07:00 74 mm[Hg] [facility] Heart rate 2020-03-23 19:07:00 63 /min [facility] Body temperature 2020-03-23 19:07:00 36.89 Faiza [facility] Respiratory rate 2020-03-23 19:07:00 16 /min [facility] Body height 2020-03-23 19:07:00 160 cm [facility] Body weight 2020-03-23 19:07:00 55.934 kg [facility] BMI 2020-03-23 19:07:00 21.84 kg/m2 [facility] Systolic blood 2020-03-09 18:02:00 123 mm[Hg] [facility] Diastolic blood 2020-03-09 18:02:00 73 mm[Hg] [facility] Heart rate 2020-03-09 18:02:00 81 /min [facility] Body temperature 2020-03-09 18:02:00 37.06 Faiza [facility] Respiratory rate 2020-03-09 18:02:00 16 /min [facility] Body height 2020-03-09 18:02:00 160 cm [facility] Body weight 2020-03-09 18:02:00 55.792 kg [facility] BMI 2020-03-09 18:02:00 21.79 kg/m2 [facility] Systolic blood 2020-02-24 21:00:00 125 mm[Hg] [facility] Diastolic blood 2020-02-24 21:00:00 70 mm[Hg] [facility] Heart rate 2020-02-24 21:00:00 65 /min [facility] Body temperature 2020-02-24 21:00:00 36.83 Faiza [facility] Respiratory rate 2020-02-24 21:00:00 16 /min [facility] Body height 2020-02-24 21:00:00 160 cm [facility] Body weight 2020-02-24 21:00:00 53.581 kg [facility] BMI 2020-02-24 21:00:00 20.92 kg/m2 [facility] Systolic blood 2020-02-10 21:07:00 118 mm[Hg] [facility] Diastolic blood 2020-02-10 21:07:00 68 mm[Hg] [facility] Heart rate 2020-02-10 21:07:00 76 /min [facility] Body temperature 2020-02-10 21:07:00 36.67 Faiza [facility] Respiratory rate 2020-02-10 21:07:00 16 /min [facility] Body height 2020-02-10 21:07:00 160 cm [facility] Body weight 2020-02-10 21:07:00 52.759 kg [facility] BMI 2020-02-10 21:07:00 20.60 kg/m2 [facility] Systolic blood 2020-01-13 20:49:00 119 mm[Hg] [facility] Diastolic blood 2020-01-13 20:49:00 66 mm[Hg] [facility] Heart rate 2020-01-13 20:49:00 90 /min [facility] Body temperature 2020-01-13 20:49:00 36.61 Faiza [facility] Respiratory rate 2020-01-13 20:49:00 16 /min [facility] Body height 2020-01-13 20:49:00 160 cm [facility] Body weight 2020-01-13 20:49:00 51.001 kg [facility] BMI 2020-01-13 20:49:00 19.92 kg/m2 [facility] Systolic blood 2019-12-15 20:57:00 119 mm[Hg] [facility] Diastolic blood 2019-12-15 20:57:00 70 mm[Hg] [facility] Heart rate 2019-12-15 20:57:00 78 /min [facility] Body temperature 2019-12-15 20:57:00 36.89 Faiza [facility] Respiratory rate 2019-12-15 20:57:00 16 /min [facility] Body height 2019-12-15 20:57:00 160 cm [facility] Body weight 2019-12-15 20:57:00 50.894 kg [facility] BMI 2019-12-15 20:57:00 19.88 kg/m2 [facility] Systolic blood 2019-11-17 20:21:00 114 mm[Hg] [facility] Diastolic blood 2019-11-17 20:21:00 71 mm[Hg] [facility] Heart rate 2019-11-17 20:21:00 77 /min [facility] Body temperature 2019-11-17 20:21:00 36.5 Faiza [facility] 2019-11-17 20:21:00 16 /min [facility] Body height 2019-11-17 20:21:00 162.6 cm [facility] Body weight 2019-11-17 20:21:00 49.612 kg [facility] BMI 2019-11-17 20:21:00 18.77 kg/m2 [facility] Procedures Procedure Date / Time Performing Clinician Source Performed US ABDOMEN COMPLETE 2022-06-07 18:10:00 Carole Wren [facility] ASSIGNMENT OF BENEFITS 2022-06-07 17:13:13 Doctor Unassigned, [facility] Name [facility] POCT TEST 2022-05-31 00:00:00 Carole Wren [facility] MEDICATION CORRESPONDENCE 2022-03-30 06:01:00 Doctor Unassigned, [facility] [place] [facility] POCT URINALYSIS 2020-05-02 21:52:00 Betsey Rojas [facility] POCT URINALYSIS 2020-03-23 19:08:00 Betsey Rojas [facility] POCT URINALYSIS 2020-03-09 18:05:00 Betsey Rojas [facility] TDAP VACCINE, >11 YRS, IM 2020-02-24 21:32:02 Betsey Rojas [facility] POCT URINALYSIS 2020-02-24 21:03:00 Betsey Rojas [facility] POCT URINALYSIS 2020-02-10 21:15:00 Betsey Rojas [facility] POCT URINALYSIS 2020-01-13 20:52:00 Betsey Rojas [facility] POCT URINALYSIS 2019-12-15 00:00:00 Betsey Rojas [facility] POCT URINALYSIS 2019-11-17 20:21:00 Betsey Rojas [facility] Encounters Start End Encounter Admission Attending Care Care Encounter Source Date/Time Date/Time Type Type Clinicians Facility Department ID 2021-03-11 Outpatient [facility] [id number] Univers 13:14:43 [facility] 2022-11-01 2022-11-01 Outpatient R SIENA [facility] [id number] Univers 14:00:00 14:24:59 CAROLE [facility] 2022-11-01 2022-11-01 [facility] 1.2.840.114 [id number] Univers 14:00:00 14:24:59 Visit Carole Núñez [facility] 350.1.13.10 i ty of [place] 4.2.7.2.686 Jesse as MIKHAIL?BLEA [id number] Ca jessica MI[address] MEDICAL OFFICE BUILDING 2022-09-06 2022-09-06 Outpatient R SKY FAROOQ [facility] B [id number] Univers 11:30:00 11:30:00 SKY FAROOQ [facility] 2022-07-16 2022-07-16 Outpatient R SABIHA [facility] [id number] Univers 14:00:00 14:00:00 SRIRAM [facility] 2022-07-05 2022-07-05 Outpatient Jannie ODOM [facility] [id number] Univers 14:00:00 14:00:00 BRANDEN [facility] 2022-06-28 2022-06-28 Outpatient Jannie ODOM [facility] [id number] Univers 13:45:00 13:45:00 BRANDEN [facility] 2022-06-14 2022-06-14 Outpatient R SKY FAROOQ [facility] B [id number] Univers 11:30:00 11:43:49 SKY FAROOQ [facility] 2022-06-14 2022-06-14 Office Theresa [facility] 1.2.840.114 [id number] Univers 11:30:00 11:43:49 Visit Sky DECKER 350.1.13.10 it y of WOMEN'S 4.2.7.2.686 [facility] [id number] [facility] 134 Branch 2022-06-07 2022-06-07 [facility] [id number] Univers 11:16:28 23:59:00 CAROLE ity of [facility] 2022-06-07 2022-06-07 Hospital [facility] 1.2.840.114 [id number] Univers 11:16:28 23:59:00 Encounter Carole Wilton LESLIE 350.1.13.10 ity of [place] 4.2.7.2.686 [place] [facility] [id number] [facility] 806 Branch 2022-06-07 2022-06-07 Orders Doctor AYAH 1.2.840.114 [id number] Univers 00:00:00 00:00:00 Only Unassigned, ALEX 350.1.13.10 ity of [place] [facility] 4.2.7.2.686 Jesse as [id number] [facility] 009 Branch 2022-06-05 2022-06-05 Telephone [facility] 1.2.573.842 [id number] Univers 00:00:00 00:00:00 Carole A HEALTH 350.1.13.10 i ty of [place] 4.2.7.2.686 Jesse as MIKHAIL?BLEA [id number] [address] MEDICAL OFFICE [facility] 2022-06-03 2022-06-03 Telephone [facility] 1.2.670.219 [id number] Univers 00:00:00 00:00:00 Carole A HEALTH 350.1.13.10 i [facility] 4.2.7.2.686 Jesse as MIKHAIL?BLEA [id number] [address] OFFICE [facility] 2022-05-31 2022-05-31 Research Environmental Engineer Lab, Ang - Db [facility] 1.2.840.1 [id number] Univers 08:15:00 08:30:00 Visit Carole Wren HEALTH 350.1.13.10 ity of [place] 4.2.7.2.686 Jesse as MIKHAIL?BLEA [id number] Ca jessica SWARTZ [address] MEDICAL OFFICE [facility] 2022-05-31 2022-05-31 Outpatient R SIENA [facility] [id number] Univers 07:30:00 08:04:16 CAROLE redmond [facility] 2022-05-31 2022-05-31 Office [facility] 1.2.840.114 [id number] Univers 07:30:00 08:04:16 Visit Carole Núñez [facility] 350.1.13.10 i ty of [place] 4.2.7.2.686 Jesse as MIKHAIL?BLEA [id number] [facility] [address] [facility] OFFICE [facility] 2022-03-30 2022-03-30 Outpatient R ILENE [facility] [id number] Univers 15:00:00 15:44:44 [facility] 2022-03-30 2022-03-30 Outpatient R ILENE [facility] [id number] Univers 13:00:00 13:00:00 [facility] 2022-03-30 2022-03-30 Orders Doctor AYAH 1.2.840.114 [id number] Univers 00:00:00 00:00:00 Only Unassigned, ALEX 350.1.13.10 ity of [place] [facility] 4.2.7.2.686 Jesse as [id number] [address] 2022-03-28 2022-03-28 Research Environmental Engineer Lab, Helder - [facility] 1.2.840.1 [id number] Univers 11:30:00 11:45:00 Visit Carole Wren HEALTH 350.1.13.10 ity of [place] 4.2.7.2.686 Jesse as MIKHAIL?BLEA [id number] [facility] 353 [facility] OFFICE [facility] 2022-03-28 2022-03-28 Outpatient R SIENA [facility] [id number] Univers 11:00:00 11:23:51 CAROLE redmond [facility] 2022-03-28 2022-03-28 Office Siena [facility] 1.2.840.114 [id number] Univers 11:00:00 11:23:51 Visit Carole Núñez [facility] 350.1.13.10 i ty of [place] 4.2.7.2.686 Jesse as MIKHAIL?BLEA [id number] [facility] [address] MEDICAL OFFICE BUILDING 2020-08-02 2020-08-02 Patient [facility] 1.2.840.114 [id number] Univers 00:00:00 00:00:00 Outreach Jimmy LUCIANO 350.1.13.10 i ty of [facility] 4.2.7.2.686 [place]QU[place] [id number] [address] 2020-07-05 2020-07-05 Office [facility] 1.2.580.472 [id number] Univers 13:53:32 14:29:32 Visit Juanita Izquierdo PROGRAMS DIRECTOR 350.1.13.10 it y of REGIONAL 4.2.7.2.686 Jesse as MATERNAL [id number] Med ical & CHILD [address] [place] [address] 2020-07-05 2020-07-05 Outpatient R ALYSA [facility] [id number] Univers 14:00:00 14:00:00 JUANITA redmond [facility] 2020-06-28 2020-06-28 Outpatient R ALYSA [facility] [id number] Univers 15:30:00 15:30:00 JUANITA redmond [facility] 2020-06-07 2020-06-07 Routine [facility] 1.2.904.823 [id number] Univers 15:38:04 15:58:17 Juanita Izquierdo PROGRAMS DIRECTOR 350.1.13.10 i ty of Visit [facility] 4.2.7.2.686 Jesse as MATERNAL [id number] [facility] & [address] 2020-06-07 2020-06-07 Outpatient R ALYSA [facility] [id number] Univers 15:45:00 15:45:00 JUANITA redmond [facility] 2020-05-10 2020-05-10 Outpatient R CRYSTAL [facility] [id number] Univers 13:45:00 13:45:00 BETSEY redmond o f [facility] 2020-05-02 2020-05-02 Routine Akinsipe, [facility] 1.2.692.355 [id number] Univers 15:23:26 16:12:16 Betsey C PROGRAMS DIRECTOR 350.1.13.10 ity of Visit REGIONAL 4.2.7.2.686 Jesse as MATERNAL [id number] [facility] & CHILD [address] [place] [address] 2020-05-02 2020-05-02 Outpatient R AKINSIPE, [facility] [id number] Univers 15:30:00 15:30:00 BETSEY ity o f [facility] 2020-04-29 2020-04-29 Telephone [facility] 1.2.840.114 [id number] Univers 00:00:00 00:00:00 Betsey C PROGRAMS DIRECTOR 350.1.13.10 ity of REGIONAL 4.2.7.2.686 Jesse as MATERNAL [id number] [facility] & [address] 2020-04-18 2020-04-18 Laboratory Lab, Adc Fam Pob I [facility] 1.2. 840.114 [id number] Univers 13:00:12 13:20:12 Only [facility] 350.1.13.10 ity [facility] 4.2.7.2.686 Jesse as Professio [id number] Ca dicnell [facility] [address] 2020-04-18 2020-04-18 Outpatient R [facility] [id number] Univers 13:00:00 13:00:00 ity of [facility] 2020-04-06 2020-04-06 Outpatient R AKINSIPE, [facility] [id number] Univers 15:45:00 15:45:00 BETSEY ity o f [facility] 2020-03-23 2020-03-23 Routine Akinpe, [facility] 1.2.943.869 [id number] Univers 12:58:10 13:17:38 Betsey C PROGRAMS DIRECTOR 350.1.13.10 ity of Visit REGIONAL 4.2.7.2.686 Jesse as MATERNAL [id number] [facility] & CHILD [address] [place] [address] 2020-03-23 2020-03-23 Outpatient R AKINSIPE, [facility] [id number] Univers 12:45:00 12:45:00 BETSEY ity o f [facility] 2020-03-21 2020-03-21 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 1.2 .840.114 [id number] Univers 08:00:15 08:30:15 Visit Jeromy Cordon F PROGRAMS DIRECTOR 350.1.13.10 ity of REGIONAL 4.2.7.2.686 Jesse as MATERNAL [id number] Med ical & CHILD [address] [facility] 2020-03-21 2020-03-21 Outpatient P [facility] [id number] Univers 08:00:00 08:00:00 ity of [facility] 2020-03-21 2020-03-21 Abstract [facility] 1.2.840.114 [id number] Univers 00:00:00 00:00:00 Roszbigniewnda R PROGRAMS DIRECTOR 350.1.13.10 ity of REGIONAL 4.2.7.2.686 Jesse as MATERNAL [id number] Med ical & CHILD [address] [place] [address] 2020-03-09 2020-03-09 Routine Akinsipe, [facility] 1.2.906.786 [id number] Univers 12:46:26 13:19:05 Betsey C PROGRAMS DIRECTOR 350.1.13.10 ity of Visit REGIONAL 4.2.7.2.686 Jesse as MATERNAL [id number] [facility] ical & CHILD [address] [place] [address] 2020-03-09 2020-03-09 Outpatient R AKINSIPE, [facility] [id number] Univers 12:45:00 12:45:00 BETSEY ity o f [facility] 2020-02-24 2020-02-24 Routine Akinpe, [facility] 1.2.231.829 [id number] Univers 15:51:02 16:32:15 Betsey C PROGRAMS DIRECTOR 350.1.13.10 ity of Visit REGIONAL 4.2.7.2.686 Jesse as MATERNAL [id number] [facility] ical & CHILD [address] [place] [address] 2020-02-24 2020-02-24 Outpatient R AKINSIPE, [facility] [id number] Univers 16:00:00 16:00:00 BETSEY redmond o f [facility] 2020-02-11 2020-02-11 Research Environmental Engineer Lab, TramaineRmchp [facility] 1.2.840. 114 [id number] Univers 12:49:31 13:04:31 Visit Eyad Rojasml Nugent PROGRAMS DIRECTOR 350.1.13. 10 ity of REGIONAL 4.2.7.2.686 Jesse as MATERNAL [id number] [facility] & CHILD [address] [place] [address] 2020-02-11 2020-02-11 Outpatient R [facility] [id number] Univers 13:00:00 13:00:00 ity [facility] 2020-02-10 2020-02-10 Routine Akinformerly [facility], [facility] 1.2.867.054 [id number] Univers 15:52:08 16:19:32 Betsey C PROGRAMS DIRECTOR 350.1.13.10 ity of Visit REGIONAL 4.2.7.2.686 Jesse as MATERNAL [id number] [facility] & CHILD [address] [place] [address] 2020-02-10 2020-02-10 Outpatient R AKINSIPE, [facility] [id number] Univers 15:45:00 15:45:00 BETSEY darianarie bradford [facility] 2020-01-13 2020-01-13 Routine Akinformerly [facility], [facility] 1.2.709.931 [id number] Univers 15:43:31 16:14:13 Betsey C PROGRAMS DIRECTOR 350.1.13.10 ity of Visit REGIONAL 4.2.7.2.686 Jesse as MATERNAL [id number] [facility] & CHILD [address] [place] [address] 2020-01-13 2020-01-13 Outpatient R AKINSIPE, [facility] [id number] Univers 15:45:00 15:45:00 BETSEY darianarie o [facility] 2019-12-29 2019-12-29 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 1.2 .840.114 [id number] Univers 10:57:40 11:57:40 Visit Jacques Tolliver PROGRAMS DIRECTOR 350.1.13.10 ity of REGIONAL 4.2.7.2.686 Jesse as MATERNAL [id number] [facility] ical & CHILD [address] [facility] 2019-12-29 2019-12-29 Outpatient P [facility] [id number] Univers 11:00:00 11:00:00 ity of [facility] 2019-12-29 2019-12-29 Abstract [facility] 1.2.840.114 [id number] Univers 00:00:00 00:00:00 Betsey C PROGRAMS DIRECTOR 350.1.13.10 ity of REGIONAL 4.2.7.2.686 Jesse as MATERNAL [id number] [facility] & CHILD [address] [place] [address] 2019-12-21 2019-12-21 Telephone [facility] 1.2.840.114 [id number] Univers 00:00:00 00:00:00 Betsey C PROGRAMS DIRECTOR 350.1.13.10 ity of REGIONAL 4.2.7.2.686 Jesse as MATERNAL [id number] [facility] & CHILD [address] [place] [address] 2019-12-15 2019-12-15 Routine [facility] 1.2.987.156 [id number] Univers 15:40:57 15:55:57 Betsey C PROGRAMS DIRECTOR 350.1.13.10 ity of Visit REGIONAL 4.2.7.2.686 Jesse as MATERNAL [id number] [address] 2019-12-15 2019-12-15 [facility] [id number] Univers 15:45:00 15:45:00 BETSEY ity o f [facility] 2019-11-17 2019-11-17 Routine [facility] 1.2.939.900 [id number] Univers 15:13:55 15:39:26 Betsey C PROGRAMS DIRECTOR 350.1.13.10 ity of Visit REGIONAL 4.2.7.2.686 Jesse as MATERNAL [id number] [facility] & [address] 2019-11-17 2019-11-17 Outpatient R AKINSIPE, [facility] [id number] Univers 15:30:00 15:30:00 BETSEY ity o f [facility] 2019-10-20 2019-10-20 Outpatient R AKINSIPE, [facility] [id number] Univers 14:00:00 14:00:00 BETSEY kiser [facility] Results Test Description Test Time Test Comments Results Result Comments Source POCT TEST 2022-05-31 14:10:00 Test Item Value Reference Range Interpretation Comme nts POCT PREG (test code = 1605) Negative On board controls acceptable with C Line (test code = 3574) Yes POCT PREG LOT # (test code = 3575) POCT PREG TEST DATE (test code = 3576) [id number] 14:10:00 Test Item Value Reference Range Interpretation Comments POCT PREG (test code = 1605) Negative On board controls acceptable with C Yes Line (test code = 3574) POCT PREG LOT # (test code = 3575) POCT PREG TEST DATE (test code = 3576) [facility] URINALYSIS W SPECIFIC [id number] 21:52:00 Test Item Value Reference Range Interpretation Comments POCT U SP GRAV (test code = 3255) . 1.005-1.025 POCT PH U (test code = 3254) . 5-8 POCT U LEUK EST (test code = 3263) . Negative - Negative POCT U NIT (test code = 3262) . Negative - Negative POCT U PROT (test code = 3259) Trace Negative - Negative POCT U GLU (test code = 3256) Neg Negative - Negative POCT U KETONE (test code = 3258) . Negative - Negative POCT U UROBILI (test code = 3260) . 0.2-1 POCT U BILI (test code = 3261) . Negative - Negative POCT U BLD (test code = 3257) . Negative - Negative POCT U COLOR (test code = 3266) POCT U APPEAR (test code = 3267) [facility] URINALYSIS W SPECIFIC [id number] 19:08:00 Test Item Value Reference Range Interpretation Comments POCT U SP GRAV (test code = 3255) . 1.005-1.025 POCT PH U (test code = 3254) . 5-8 POCT U LEUK EST (test code = 3263) . Negative - Negative POCT U NIT (test code = 3262) . Negative - Negative POCT U PROT (test code = 3259) Trace Negative - Negative POCT U GLU (test code = 3256) Neg Negative - Negative POCT U KETONE (test code = 3258) . Negative - Negative POCT U UROBILI (test code = 3260) . 0.2-1 POCT U BILI (test code = 3261) . Negative - Negative POCT U BLD (test code = 3257) . Negative - Negative POCT U COLOR (test code = 3266) POCT U APPEAR (test code = 3267) [facility] URINALYSIS W SPECIFIC [id number] 18:05:00 Test Item Value Reference Range Interpretation Comments POCT U SP GRAV (test code = 3255) . 1.005-1.025 POCT PH U (test code = 3254) . 5-8 POCT U LEUK EST (test code = 3263) . Negative - Negative POCT U NIT (test code = 3262) . Negative - Negative POCT U PROT (test code = 3259) Trace Negative - Negative POCT U GLU (test code = 3256) Neg Negative - Negative POCT U KETONE (test code = 3258) . Negative - Negative POCT U UROBILI (test code = 3260) . 0.2-1 POCT U BILI (test code = 3261) . Negative - Negative POCT U BLD (test code = 3257) . Negative - Negative POCT U COLOR (test code = 3266) POCT U APPEAR (test code = 3267) [facility] URINALYSIS W SPECIFIC [id number] 18:05:00 Test Item Value Reference Range Interpretation Comments POCT U SP GRAV (test code = 3255) . 1.005-1.025 POCT PH U (test code = 3254) . 5-8 POCT U LEUK EST (test code = 3263) . Negative - Negative POCT U NIT (test code = 3262) . Negative - Negative POCT U PROT (test code = 3259) Trace Negative - Negative POCT U GLU (test code = 3256) Neg Negative - Negative POCT U KETONE (test code = 3258) . Negative - Negative POCT U UROBILI (test code = 3260) . 0.2-1 POCT U BILI (test code = 3261) . Negative - Negative POCT U BLD (test code = 3257) . Negative - Negative POCT U COLOR (test code = 3266) POCT U APPEAR (test code = 3267) [facility] URINALYSIS W SPECIFIC [id number] 21:04:00 Test Item Value Reference Range Interpretation Comments POCT U SP GRAV (test code = 3255) . 1.005-1.025 POCT PH U (test code = 3254) . 5-8 POCT U LEUK EST (test code = 3263) . Negative - Negative POCT U NIT (test code = 3262) . Negative - Negative POCT U PROT (test code = 3259) Trace Negative - Negative POCT U GLU (test code = 3256) Neg Negative - Negative POCT U KETONE (test code = 3258) . Negative - Negative POCT U UROBILI (test code = 3260) . 0.2-1 POCT U BILI (test code = 3261) . Negative - Negative POCT U BLD (test code = 3257) . Negative - Negative POCT U COLOR (test code = 3266) . POCT U APPEAR (test code = 3267) [facility] URINALYSIS W SPECIFIC [id number] 21:15:00 Test Item Value Reference Range Interpretation Comments POCT U SP GRAV (test code = 3255) . 1.005-1.025 POCT PH U (test code = 3254) . 5-8 POCT U LEUK EST (test code = 3263) . Negative - Negative POCT U NIT (test code = 3262) . Negative - Negative POCT U PROT (test code = 3259) Trace Negative - Negative POCT U GLU (test code = 3256) Neg Negative - Negative POCT U KETONE (test code = 3258) . Negative - Negative POCT U UROBILI (test code = 3260) . 0.2-1 POCT U BILI (test code = 3261) . Negative - Negative POCT U BLD (test code = 3257) . Negative - Negative POCT U COLOR (test code = 3266) POCT U APPEAR (test code = 3267) [facility] URINALYSIS W SPECIFIC [id number] 20:52:00 Test Item Value Reference Range Interpretation Comments POCT U SP GRAV (test code = 3255) , 1.005-1.025 POCT PH U (test code = 3254) , 5-8 POCT U LEUK EST (test code = 3263) , Negative - Negative POCT U NIT (test code = 3262) , Negative - Negative POCT U PROT (test code = 3259) Trace Negative - Negative POCT U GLU (test code = 3256) Neg Negative - Negative POCT U KETONE (test code = 3258) . Negative - Negative POCT U UROBILI (test code = 3260) . 0.2-1 POCT U BILI (test code = 3261) . Negative - Negative POCT U BLD (test code = 3257) . Negative - Negative POCT U COLOR (test code = 3266) POCT U APPEAR (test code = 3267) [facility] URINALYSIS W SPECIFIC [id number] 20:52:00 Test Item Value Reference Range Interpretation Comments POCT U SP GRAV (test code = 3255) , 1.005-1.025 POCT PH U (test code = 3254) , 5-8 POCT U LEUK EST (test code = 3263) , Negative - Negative POCT U NIT (test code = 3262) , Negative - Negative POCT U PROT (test code = 3259) Trace Negative - Negative POCT U GLU (test code = 3256) Neg Negative - Negative POCT U KETONE (test code = 3258) . Negative - Negative POCT U UROBILI (test code = 3260) . 0.2-1 POCT U BILI (test code = 3261) . Negative - Negative POCT U BLD (test code = 3257) . Negative - Negative POCT U COLOR (test code = 3266) POCT U APPEAR (test code = 3267) [facility] URINALYSIS W SPECIFIC [id number] 20:52:00 Test Item Value Reference Range Interpretation Comments POCT U SP GRAV (test code = 3255) , 1.005-1.025 POCT PH U (test code = 3254) , 5-8 POCT U LEUK EST (test code = 3263) , Negative - Negative POCT U NIT (test code = 3262) , Negative - Negative POCT U PROT (test code = 3259) Trace Negative - Negative POCT U GLU (test code = 3256) Neg Negative - Negative POCT U KETONE (test code = 3258) . Negative - Negative POCT U UROBILI (test code = 3260) . 0.2-1 POCT U BILI (test code = 3261) . Negative - Negative POCT U BLD (test code = 3257) . Negative - Negative POCT U COLOR (test code = 3266) POCT U APPEAR (test code = 3267) [facility] URINALYSIS W SPECIFIC [id number] 20:58:00 Test Item Value Reference Range Interpretation Comments POCT U SP GRAV (test code = 3255) . 1.005-1.025 POCT PH U (test code = 3254) . 5-8 POCT U LEUK EST (test code = 3263) . Negative - Negative POCT U NIT (test code = 3262) . Negative - Negative POCT U PROT (test code = 3259) TRACE Negative - Negative POCT U GLU (test code = 3256) NORMAL Negative - Negative POCT U KETONE (test code = 3258) . Negative - Negative POCT U UROBILI (test code = 3260) . 0.2-1 POCT U BILI (test code = 3261) . Negative - Negative POCT U BLD (test code = 3257) . Negative - Negative POCT U COLOR (test code = 3266) POCT U APPEAR (test code = 3267) [facility] URINALYSIS W SPECIFIC [id number] 20:21:00 Test Item Value Reference Range Interpretation Comments POCT U SP GRAV (test code = 3255) . 1.005-1.025 POCT PH U (test code = 3254) . 5-8 POCT U LEUK EST (test code = 3263) . Negative - Negative POCT U NIT (test code = 3262) . Negative - Negative POCT U PROT (test code = 3259) Trace Negative - Negative POCT U GLU (test code = 3256) Neg Negative - Negative POCT U KETONE (test code = 3258) . Negative - Negative POCT U UROBILI (test code = 3260) . 0.2-1 POCT U BILI (test code = 3261) . Negative - Negative POCT U BLD (test code = 3257) . Negative - Negative POCT U COLOR (test code = 3266) POCT U APPEAR (test code = 3267) [facility]
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
[2023-01-24 16:15] VITALS: TEMP 97
[2023-01-24 16:16] VITALS: BP 111/73; O2SAT 100
== END 2023-01-24 15:53 | disposition home or self-care (01) ==
LOC: ER 12:37
DX: S06.0X0A Concussion without loss of consciousness, initial encounter (principal)
CPT/HCPCS: 70450; 72125; 99285